=== PATIENT | male | born 1955 | race Caucasian/White ===

== ENCOUNTER 2017-05-15 01:38 | Emergency (ER) | payer OTHER, SELFPAY ==
[2017-05-15 01:39] VITALS: BP 158/83; PULSE 73; RESP 20; TEMP 36.5; BMI 24.5
--- NOTE | 2017-05-15 01:55 | RAD_ITS ---
STUDY: X-RAY - LUMBAR SPINE REASON FOR EXAM: Male, 62 years old. SLIPPED T FELL ON ICE C/O LT SIDED BACK PAIN TECHNIQUE: 3 view(s) of the lumbar spine were obtained. COMPARISON: None FINDINGS: There is straightening of the normal lumbar lordosis. There is a mild dextroscoliosis of the lumbar spine. There is a normal alignment of the vertebrae. There is multilevel endplate spondylosis of the lumbar vertebrae. There is multi-level degenerative disc disease with multi-level disc space narrowing. There is atherosclerotic calcification of the abdominal aorta without a demonstrated aneurysm. RAD/Lumbar Spine 2 or 3 Views IMPRESSION: Degenerative changes of the spine, as detailed above. Electronically Signed: Nadeem Patricia MD at 3:14 EST Tel , Service support ,
--- NOTE | 2017-05-15 01:55 | RAD_ITS ---
STUDY: X-RAY CHEST REASON FOR EXAM: Male, 62 years old. SLIPPED T FELL ON ICE C/O LT SIDED BACK PAIN TECHNIQUE: Single AP portable view of the chest. COMPARISON: None. FINDINGS: The lungs are clear and expanded. There is no demonstrated pleural abnormality. Normal size heart. Normal mediastinum and faheem. Normal visualized pulmonary arteries. Normal visualized aortic arch and descending thoracic aorta. Normal visualized thoracic spine. There is degenerative osteoarthritis of the bilateral shoulders. There is no demonstrated abnormality of the visualized soft tissue structures of the upper abdomen. RAD/Chest PA and Lateral IMPRESSION: Degenerative changes, as described above. No demonstrated acute cardiopulmonary process. Electronically Signed: Nadeem Patricia MD at 2:47 EST Tel , Service support ,
[2017-05-15] MEDS: HYDROCODONE/APAP 7.5-325/15ML 15 ML UDC PO (01:58)
--- NOTE | 2017-05-15 03:25 | ED.DCSUM_ITS ---
- ER Visit Summary Date of Service: 05/15/17 Chief Complaint: Fall History of Present Illness: The patient is a [address] Eugenio Painting. Reports that yesterday he slipped on the ice fell and landed with the left flank on a step. Reports he has pain is 10 out of 10 severity. He denies any blow to the head or loss of consciousness. No neck, shoulder, wrist, or hip pain. He is not on blood thinners. Patient reports she has no radiation of pain to his legs. No numbness, tingling or weakness in his legs. Physical Examination: Vitals: Stable. Afebrile. Neck: No vertebral tenderness. Full ROM without difficulty. Cleared by NEXUS criteria. Back: Moderate tenderness palpation to the right flank. No vertebral point tenderness. General: A&O x 3. NAD. Cardiovascular exam: Regular rate and rhythm, no murmur, rub or gallop. Respiratory exam: Chest nontender. No crepitus. Clear to auscultation bilaterally. No wheezes or stridor. No pain with anterior posterior lateral compression. Abdominal exam: Soft, nontender, nondistended, normal bowel sounds. No pain in RUQ or LUQ specifically. No peritoneal signs. Extremity: Atraumatic. No pain with range of motion. Test Results: Chest x-ray shows no obvious broken ribs. No pneumothorax. The thoracic spine is normal. LS spine x-ray showed no acute disease. Emergency Department Course and Treatment: Patient was treated with Lortab. He was instructed on use of an incentive spirometer. Treatment Plan: He will be discharged with Fedscreek and Colace. Instructed follow- up Dr. Painting in 1 week if not improving. Return to the emergency department for any worsening symptoms. Disposition: To home in improved and stable condition. Impression: 1. Fall. 2. Back pain, acute. This note was generated with [employer] dictation software. It may contain incorrect words, spelling, and punctuation that were not noted in review of the chart prior to signing ED Disposition - Plan for ED Patient: Disposition: Home or Assisted Living Chief Complaint: Fall Instructions: ED Low Back Pain Injury Prescriptions: Hydrocodone Bitart/Apap 5-325 [Fedscreek 5/325] 1 - 2 tablet PO Q4H PRN PRN 5 Days # 20 tablet PRN Reason: Pain Docusate Sodium [Colace] 100 mg PO DAILY #20 capsule Referrals: Eugenio Painting MD [Primary Care Provider] - 1 Week if not improving
[2017-05-15] MEDS: HYDROcodone Bitartrate/Apap 5/325 Tablet PO (03:45)
[2017-05-15 03:46] VITALS: BP 124/82; PULSE 59; RESP 20; O2SAT 94
== END 2017-05-15 03:47 | disposition home or self-care (01) ==
PROVIDERS: Emergency Provider Emergency Medicine; Family Provider Family Medicine; PCP Family Medicine
DX: M54.5 Low back pain (principal); M54.6 Pain in thoracic spine; G47.33 Obstructive sleep apnea (adult) (pediatric); Z86.711 Personal history of pulmonary embolism; Z87.891 Personal history of nicotine dependence; Z79.82 Long term (current) use of aspirin; W00.0XXA Fall on same level due to ice and snow, initial encounter; Y93.89 Activity, other specified; Y92.89 Other specified places as the place of occurrence of the external cause; Y99.8 Other external cause status
CPT/HCPCS: 71046; 72100; 99283

== ENCOUNTER 2017-05-29 09:08 | Day surgery (SDC) | payer OTHER, MEDICAID, SELFPAY ==
[2017-05-29 09:32] VITALS: BP 139/83; PULSE 52; RESP 16; TEMP 36.6; O2SAT 100; BMI 24.7
--- NOTE | 2017-05-29 10:29 | PCM.HP.STD ---
Problem List (1) Colon cancer screening Status: Acute History of Present Illness Date of Admission: 05/29/17 The patient is a 62 year old M who presents for screening colonoscopy. Past Medical History Allergies acetaminophen [From Percocet] Allergy (Verified 05/26/17 13:19) Itching oxycodone [From Percocet] Allergy (Verified 05/26/17 13:19) Itching Home Medications: Ambulatory Orders Medication Instructions Recorded Aspirin E.C. [Ecotrin] 1 tab PO DAILY 05/15/17 Smoking Status: Former smoker - *Family History Maternal History Items: No pertinent history VTE Information - Inpt Only VTE Present on Admission: No VTE Mechan Device Prophylaxis: None VTE Pharm Prophylaxis ordered?: No Reason prophylaxis not ordered:: Treatment Not Indicated Patient Problems: Active and Suspected Problems Colon cancer screening (Acute) - Physical Exam Neck: Supple, No JVD Lungs: Clear to auscultation Cardiovascular: Regular rate, Regular Rhythm, No murmurs Abdomen: Bowel Sounds Present, Soft, Non Tender, Non-Distended Vital Signs Temp Pulse Resp BP Pulse Ox 97.9 F 52 L 16 139/83 H 100 05/29/17 09:32 05/29/17 09:32 05/29/17 09:32 05/29/17 09:32 05/29/17 09:32 Oxygen Delivery Method Room Air Weight: 158 lb 4.67 oz Body Mass Index (BMI) 24.7 Assessment/Plan Active and Suspected Problems Colon cancer screening (Acute) I plan is to perform a colonoscopy
--- NOTE | 2017-05-29 10:31 | PCM.OPRPT ---
Problem List (1) Colon cancer screening Status: Acute Report of Operation Date of Procedure: 05/29/17 Pre-Operative Diagnosis: Z12.11 screening colonoscopy Post-Operative Diagnosis: Same Surgery/Procedure Performed:: [id number] colonoscopy Type of Anesthesia:: MAC Anesthesiologist: Elian Oneill Description of Procedure: Patient was brought into the endoscopy suite and placed in the left lateral decubitus position. Patient was given graded anesthesia. Scope was inserted into the rectum. The scope was directed through the sigmoid colon, descending colon, transverse colon, ascending colon, to the cecum. Operative findings: 1. Cecum: Normal appearance no mass lesions normal ileocecal valve. 2. Ascending colon: Normal appearance no mass lesions. 3. Transverse colon: Normal appearance no mass lesions. 4. descending colon: Normal appearance no mass lesions. 5. Sigmoid colon: Normal appearance no mass lesions. 6. Rectum: Normal appearance no mass lesions retroflexion did show some internal hemorrhoids no masses are identified. Digital rectal exam was performed showing a smooth prostate with no masses within the anus. Patient will need to have another colonoscopy in 10 years. - Admit VTE Documentation VTE Present on Admission: No VTE Mechan Device Prophylaxis: None VTE Pharm Prophylaxis ordered?: No Reason prophylaxis not ordered:: Treatment Not Indicated
[2017-05-29 10:32] VITALS: BP 122/95; BP 139/83; PULSE 63; RESP 18; TEMP 36.1; O2SAT 93
[2017-05-29 10:35] VITALS: BP 100/62; BP 139/83; PULSE 59; RESP 18; O2SAT 96
[2017-05-29 10:40] VITALS: BP 104/56; BP 139/83; PULSE 57; RESP 18; O2SAT 97
[2017-05-29 10:43] VITALS: BP 139/81; BP 139/83; PULSE 55; RESP 18; TEMP 36.4; O2SAT 98
[2017-05-29 11:03] VITALS: BP 139/83
== END 2017-05-29 11:04 | disposition home or self-care (01) ==
LOC: EN 09:11 → ACINP 09:15 → AC 09:18
PROVIDERS: Family Provider Family Medicine; PCP Family Medicine; Visit Provider Surgery
PROC: 0DJD8ZZ Inspection of Lower Intestinal Tract, Via Natural or Artificial Opening Endoscopic (ICD-10-PCS; CPT 45378; principal; 2017-05-29 10:55)
DX: Z12.11 Encounter for screening for malignant neoplasm of colon (principal); K64.8 Other hemorrhoids; Z86.711 Personal history of pulmonary embolism; Z87.891 Personal history of nicotine dependence; Z79.82 Long term (current) use of aspirin
CPT/HCPCS: 45378; J7120

== ENCOUNTER → 2019-01-10 | Outpatient (CLI) | payer OTHER, SELFPAY ==
--- NOTE | 2019-01-10 13:27 | RAD_ITS ---
HISTORY: chest tightness x 3 days EXAM: XR Chest 2 Views: COMPARISON: May 15, 2017 FINDINGS: # of images incl. paperwork: 2 Lungs are clear. Heart is not enlarged. Bones are normal. Pulmonary vascularity is distinct. No effusions. RAD/Chest PA and Lateral IMPRESSION: Normal. at 0602 Reported and signed by: Bill Vera MD Electronically Signed: Bill Vera MD at 6:01 EDT Tel , Service support ,
[2019-01-10 16:08] LABS: Hematocrit 43.9 % (40-54); Mean Corp Hgb Conc 34.2 g/dL (32-36); Mean Corpuscular Hgb 32.1 pg (27.0-32.0); Platelet Count 285 K/mm3 (150-450); RBC Distribution Width CV 13.7 % (11.6-14.6); RBC Distribution Width SD 47.8 fl (35.1-43.9); Red Blood Count 4.67 M/mm3 (4.6-6.2); White Blood Count 5.5 K/mm3 (4.4-11.0)
[2019-01-10 16:37] LABS: Erythrocyte Sedimentation Rate 8 mm/hr (0-20)
[2019-01-10 17:04] LABS: AST(SGOT) 24 U/L (15-37); Alanine Aminotransfer ALT/SGPT 29 U/L (16-61); Albumin, Serum 3.5 g/dL (3.2-5.0); Alkaline Phosphatase 61 U/L (45-117); Anion Gap 7 (5-15); BUN 19 mg/dL (7-18); BUN/Creat Ratio 20.3 RATIO (10-20); CPK Total, Creatine Kinase 225 U/L (39-308); CRP < 2.90 mg/L (0.0-3.0); Calcium,Total 8.8 mg/dL (8.5-10.1); Chloride 107 mmol/L (98-107); Creatinine, Serum 0.93 mg/dL (0.70-1.30); EST Glomerular Filtration Rate 87 mL/min (>60); Est Glom Filt Rate - Afr Amer 105 mL/min (>60); Globulin 3.5 g/dL (2.2-4.2); Glucose 83 mg/dL (74-106); Potassium 3.6 mmol/L (3.5-5.1); Sodium Level 142 mmol/L (136-145); Thyroid Stim Hormone (TSH) 0.48 uIU/mL (0.358-3.74)
[2019-01-14 20:53] LABS: Myoglobin, Urine < 2 ng/mL (0-13)
== END | disposition home or self-care (01) ==
PROVIDERS: Family Provider Family Medicine; PCP Family Medicine; Referring Provider Family Medicine; Visit Provider Family Medicine
DX: R07.89 Other chest pain (principal)
CPT/HCPCS: 36415; 71046; 80053; 82550; 83874; 84443; 85027; 85652; 86140

== ENCOUNTER → 2019-02-08 | Outpatient (CLI) | payer OTHER, SELFPAY ==
--- NOTE | 2019-02-08 13:39 | PFT ---
INTRODUCTION: The patient is a 63-year-old male that presents for pulmonary function studies secondary to a diagnosis of asthma. Respiratory therapy reports good patient effort. Bronchodilators were used during testing. INTERPRETATION: Forced expiration spirometry demonstrates the presence of a mild large airways obstructive ventilatory defect. There was no significant response to aerosolized bronchodilators. Spirograms are of good quality and do not plateau indicating slow emptying of the lungs. Body plethysmography was performed and reveals lung volumes to be within normal limits. Diffusing capacity by single breath CO is also within normal limits. IMPRESSION: Irreversible mild large airways obstructive ventilatory defect with preserved lung volumes and diffusing capacity.
== END | disposition home or self-care (01) ==
PROVIDERS: Family Provider Family Medicine; PCP Family Medicine; Referring Provider Family Medicine; Visit Provider Family Medicine
DX: J45.909 Unspecified asthma, uncomplicated (principal)
CPT/HCPCS: 94060; 94726; 94729

== ENCOUNTER → 2020-02-03 08:42 | Outpatient (CLI) | payer OTHER, SELFPAY ==
--- NOTE | 2020-02-03 08:46 | CDU_ITS ---
Reason For Study: Stenosis Rt. Velocities/BP Lt. Velocities/BP Prox CCA 73.4/20 cm/sec. Prox CCA 106/24.9 cm/sec. Mid CCA 50.9/16.8 cm/sec. Mid CCA 97.4/26.2 cm/sec. Dist CCA 52.2/19.2 cm/sec. Dist CCA 102.3/32.3 cm/sec. Prox ICA 26.4/9 cm/sec. Prox ICA 43/11.6 cm/sec. Mid ICA 55.2/10.3 cm/sec. Mid ICA 56.1/23.8 cm/sec. Dist ICA 57.8/22.9 cm/sec. Dist ICA 62.2/22.9 cm/sec. Rt. ICA/CCA = 1.1. Lt. ICA/CCA = 0.6. Prox ECA 482.3/115.2 cm/sec. Prox ECA 91.3/18.8 cm/sec. Rt. Vert. 36/12.5 cm/sec. Lt. Vert. 36.5/13 cm/sec. Right Extracranial There is homogeneous, smooth atherosclerotic plaque noted in the right common carotid artery. There is homogeneous, smooth atherosclerotic plaque noted in the right internal carotid artery. There is heterogeneous, irregular atherosclerotic plaque noted in the right external carotid artery. Antegrade flow is noted in the right vertebral artery. Left Extracranial There is homogeneous, smooth atherosclerotic plaque noted in the left common carotid artery. There is heterogeneous, irregular atherosclerotic plaque noted in the left internal carotid artery. There is intimal thickening but no significant atherosclerotic plaque noted in the left external carotid artery. Antegrade flow is noted in the left vertebral artery. Procedure Carotid Duplex 03604. This is a Carotid Duplex examination using B-mode, color flow and specral Doppler. Exam performed in department. Interpretation Summary Smooth plaque noted at the proximal right internal carotid artery with less than 50% stenosis. Irregular calcific plaque with shadowing proximal right external carotid artery with greater than 50% stenosis Minimal irregular plaque at the proximal left internal carotid artery with less than 50% stenosis Less than 50% stenosis left external carotid Patent antegrade vertebrals bilaterally Ordering Physician: PAULA MCMILLAN Referring Physician: Eugenio Painting MD Performed By: Helen Ocampo RVT
== END ==
PROVIDERS: PCP Family Medicine
DX: I65.22 Occlusion and stenosis of left carotid artery (principal)
CPT/HCPCS: 93880

== ENCOUNTER → 2021-11-08 | Outpatient (CLI) | payer OTHER, SELFPAY ==
[2021-11-08 15:33] LABS: Absolute Lymphocyte Count 0.66 X10^3/uL (0.83-4.51); Absolute Neutrophil Count 2.9 X10^3/uL (2.0-7.7); Basophil# 0.02 X10^3/uL; Basophil% 0.5 % (0-1); Eosinophil# 0.05 X10^3/uL; Eosinophils% 1.2 % (0-5); Hematocrit 48.1 % (40-54); Hemoglobin 16.1 g/dL (13.0-16.5); Lymphocyte # 0.66 X10^3/ul (0.83-4.51); Lymphocyte % 16.3 % (19-41); Mean Corp Hgb Conc 33.5 g/dL (32-36); Mean Corpuscular Hgb 32.4 pg (27.0-32.0); Mean Corpuscular Volume 96.8 fL (80-94); Mean Platelet Vol. 9.3 fl (6.2-12.0); Monocyte# 0.41 X10^3/uL; Monocyte% 10.1 % (0-10); NRBC Flagged by Analyzer 0 % (0-5); Neutrophil # 2.89 X10^3/uL (2.7-7.7); Neutrophil % 71.4 % (47-70); Platelet Count 315 K/mm3 (150-450); RBC Distribution Width CV 13.9 % (11.6-14.6); Red Blood Count 4.97 M/mm3 (4.6-6.2); White Blood Count 4.1 K/mm3 (4.4-11.0)
[2021-11-08 15:59] LABS: ALB/GLOB Ratio 0.8 RATIO (0.9-2.4); AST(SGOT) 67 U/L (15-37); Alanine Aminotransfer ALT/SGPT 68 U/L (16-61); Albumin, Serum 3.4 g/dL (3.2-5.0); Alkaline Phosphatase 93 U/L (45-117); Anion Gap 6 (5-15); BUN 12 mg/dL (7-18); BUN/Creat Ratio 10.7 RATIO (10-20); Calcium,Total 9.2 mg/dL (8.5-10.1); Chloride 104 mmol/L (98-107); Creatinine, Serum 1.12 mg/dL (0.70-1.30); EST Glomerular Filtration Rate 70 mL/min (>60); Est Glom Filt Rate - Afr Amer 85 mL/min (>60); Globulin 4.2 g/dL (2.2-4.2); Glucose 116 mg/dL (74-106); Potassium 4.6 mmol/L (3.5-5.1); Protein, Total 7.6 g/dL (6.4-8.2); Sodium Level 136 mmol/L (136-145); Thyroid Stim Hormone (TSH) 0.95 uIU/mL (0.358-3.74)
[2021-11-08 16:27] LABS: Erythrocyte Sedimentation Rate 17 mm/hr (0-20)
== END | disposition home or self-care (01) ==
LOC: MFPLAB 12:25
PROVIDERS: PCP Family Medicine; Visit Provider Family Medicine
DX: R53.81 Other malaise (principal); R53.83 Other fatigue; Z20.822 Contact with and (suspected) exposure to COVID-19
CPT/HCPCS: 36415; 80053; 84443; 85025; 85652; 87635; U0003; U0005

== ENCOUNTER → 2021-11-26 | Outpatient (CLI) | payer OTHER, SELFPAY ==
--- NOTE | 2021-11-26 07:13 | CT_ITS ---
STUDY: LOW DOSE CT LUNG CANCER SCREENING REASON FOR EXAM: Male, 66 years old. Screening for lung ca. The patient smoked 2 packs per day for 30 years. RADIATION DOSAGE (If Supplied By Facility): CTDIvol = ( 2.01 ) mGy, DLP = ( 75.25 ) mGycm TECHNIQUE: No contrast was administered. Low dose technique was utilized (average mAS-38 and kVp 120). 1.25 mm axial source images with a slice interval of 1.25-mm were reconstructed in lung windows. 2.5 mm axial source images with a slice interval of 2.5-mm were reconstructed in lung windows. 5.0 mm axial source images with a slice interval of 5.0-mm were reconstructed in soft tissue windows. COMPARISON: None. NODULES: There is a 2.5 mm noncalcified nodule in the posterior aspect of the left upper lobe abutting the pleural surface. This is seen on axial image #48. A similar appearing nodule measuring 2 mm is seen along the posterior medial aspect of the left upper lobe as seen on axial image #51. Emphysema: Mild degree of emphysema. Linear scar in the left lower lobe and medial aspect of the right middle lobe. Endobronchial lesion: None Aorta: Atherosclerotic plaque formation of the aortic arch. CORONARY ARTERIES: Coronary artery calcification is seen. Heart: Unremarkable Pulmonary artery: Unremarkable Mediastinal nodes: Small mediastinal lymph nodes. Other chest and abdominal findings: CT/Low Dose CT Lung Screening IMPRESSION: Lung-RADS category 2 - Continue annual screening with LDCT in 12 months. IMPORTANT NOTES FOR USE: ACR Lung-RADS Version 1.1 Assessment Categories Release Date: 2018 Category: Coded 0-4 bases on nodule(s) with highest degree of suspicion. Negative screen is defined as categories 1 and 2; a positive screen is defined as categories 3 and 4. Category 3 and 4A nodules that are unchanged on interval CT should be coded as category 2, and individuals returned to screening in 12 months. Category 4X: Category 3 or 4 nodules with additional imaging findings that increase the suspicion of lung cancer, such as spiculation, GGN that doubles in size in 1 year, enlarged lymph notes, etc. Category Modifiers: S (significant finding unrelated to lung cancer) Electronically Signed: Pablo Pitt MD at 13:29 EDT ,
--- NOTE | 2021-11-26 11:06 | RAD_ITS ---
STUDY: X-RAY - RIGHT KNEE REASON FOR EXAM: Male, 66 years old. PAIN TECHNIQUE: 4 view(s) of the knee. COMPARISON: None. FINDINGS: Normal visualized distal femur. Normal visualized proximal tibia and fibula. Normal proximal tibiofibular articulation. There is moderate degenerative arthrosis of the medial femorotibial compartment with moderate joint space narrowing. Normal lateral femorotibial compartment. Normal patellofemoral articulation. There are atherosclerotic calcifications. RAD/Knee 4 or More Views IMPRESSION: Moderate medial compartment arthrosis with degenerative spurs in the proximal tibia. No demonstrated fracture or suspicious osseous lesion Electronically Signed: Maxime Reilly MD at 12:59 EDT ,
== END | disposition home or self-care (01) ==
PROVIDERS: PCP Family Medicine; Referring Provider Family Medicine; Visit Provider Family Medicine
DX: M25.561 Pain in right knee (principal); Z87.891 Personal history of nicotine dependence
CPT/HCPCS: 71271; 73564

== ENCOUNTER → 2021-12-24 | Outpatient (CLI) | payer OTHER, SELFPAY ==
[2021-12-24 15:17] LABS: ALB/GLOB Ratio 0.8 RATIO (0.9-2.4); AST(SGOT) 57 U/L (15-37); Alanine Aminotransfer ALT/SGPT 66 U/L (16-61); Albumin, Serum 3.5 g/dL (3.2-5.0); Alkaline Phosphatase 91 U/L (45-117); Anion Gap 8 (5-15); BUN 13 mg/dL (7-18); BUN/Creat Ratio 12.7 RATIO (10-20); Calcium,Total 9.1 mg/dL (8.5-10.1); Chloride 104 mmol/L (98-107); Creatinine, Serum 1.02 mg/dL (0.70-1.30); EST Glomerular Filtration Rate 78 mL/min (>60); Est Glom Filt Rate - Afr Amer 94 mL/min (>60); Globulin 4.2 g/dL (2.2-4.2); Glucose 99 mg/dL (74-106); Potassium 3.7 mmol/L (3.5-5.1); Protein, Total 7.7 g/dL (6.4-8.2); Sodium Level 139 mmol/L (136-145)
[2022-01-05 00:07] LABS: Testosterone, Free 7.95 ng/dL (5.00-21.00)
[2022-01-05 16:39] LABS: Testosterone, % Free 2.82 % (1.50-4.20); Testosterone, Total 282 ng/dL (264-916)
== END | disposition home or self-care (01) ==
LOC: MTLAB 12:47
PROVIDERS: PCP Family Medicine; Referring Provider Family Medicine; Visit Provider Family Medicine
DX: N52.9 Male erectile dysfunction, unspecified (principal)
CPT/HCPCS: 36415; 80053; 84153; 84402; 84403

== ENCOUNTER 2022-01-07 07:30 | Outpatient (RCR) | payer OTHER, SELFPAY ==
--- NOTE | 2021-12-17 09:14 | HP.PTEVAL ---
Patient's Visit Information LORENA MEDEIROS is a 66 year old M referred to Physical Therapy by Dr. Amanda Culp MD with a diagnosis of Right Knee Pain. Date of Evaluation: 12/17/21 Physical Therapist: Olesya Palma DPT - Visit Plan Frequency: 2x /Week Duration: 3 Weeks Plan: Focus on LE and core strength/stabilization. HEP Given IE: quad set, SLR, bridge, HS Stretching - Subjective Right knee pain that started months ago-insidious onset. Years ago he hyper extended it- but never really bothered him since the last 8-10 months. Pain is located right on the joint line both medial and lateral- medial is worse. No radiating pain. Describes the pain as sharp/shooting and dull and achy- Worst: 8/10 Agg: using a ladder going up, getting up off the floor. Normally the pain grabs then gets better. Eases: laying down Best: 0/10 Sleep: seldom disturbed. 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 Feels that the knee has gotten worse over the last month and a half. Job duties- have changed a little bit and have put more stress on the knee. Not as active when he gets home anymore due to the pain. Has had x-rays- showed moderate OA. Knee brace and wears it all the time. PMHx: none Meds: none - Objective Posture: fair throughout. Stairs: asc/desc 8 recip with poor control with descent and significant UE A from bilateral rails. Gait: antalgic- decrease stance on right LE with poor heel/toe pattern. SLS: 15 sec with reports of pain. Palpation: tender along medial joint line. ROM: 0-130 degrees. Strength: Core: fair, Hip: 4+/5, Knee: 5/5, Ankle: 5/5. Flex: HS: moderate, Gastroc: moderate - Balance/Special Test Scores Lower Extremity Functional Score: 37 - Goals Goal 1:: Patient will be I with HEP and progression Goal Time Frame: 4-6 Weeks Goal 2:: Patient will report 80% improvement Goal Time Frame: 4-6 Weeks Goal 3:: Patient will ambulate >300 feet with a normalized gait pattern Goal Time Frame: 4-6 Weeks Goal 4:: Patient will asc/desc 8' stairs recip with 1 HR and normal pattern - Rehabilitation Potential Physical Therapy Diagnosis: Patient presents with hypomobility- he has decreased LE and core s/s, flex and muscular endurance leading to abnormal gait and increased pain with ADL's Rehabilitation Potential: Good - Anticipated Interventions Patient/Client Instruction: Educate patient on: Benefits of Fitness Program Therapeutic Exercise to Include: Strength training, Endurance training, Agility training, Body mechanics, Postural training, Flexibilty training, Gait and locomotor training, Neuromotor development, Dynamic Lumbar Stabilization, Scapular Strength/Stabilization TENS: Yes Cryotherapy (ice pack, ice massage): Yes Thermo therapy (hot pack): Yes Ultrasound (thermal/non thermal): Yes Thank you for the opportunity to evaluate your patient. For Medicare and Medicare HMO plans, please review the plan of care and approve it. It will need to be FAXED BACK to us at [phone] for Medicare purposes. For Medicare only, by signing this I certify the plan of care. Please let me know if there are questions or concerns regarding this plan of care. Physician Signature: Date:
--- NOTE | 2022-01-07 08:11 | HP.PTDCSUM ---
It has been my pleasure to treat LORENA MEDEIROS referred by Dr. Amanda Culp MD, with the diagnosis of Right Knee Pain for a total of 6 visit(s). Discharge Date: Please see the following information for a summary of their discharge status. Subjective: Patient reports that he feels that PT has really helped. He thinks that he will continue his exercises R knee Pain Intensity (Out of 10): 0 % Improvement: 80 Objective/Function: Posture: fair throughout. Stairs: asc/desc 8 recip with single hand rail. Gait: antalgic- due to dropping a weight on his foot SLS: 30 sec with reports of pain. Palpation: not tender to touch. ROM: 0-130 degrees. Strength: Core: fair, Hip: 4+/5, Knee: 5/5, Ankle: 5/5. Flex: HS: moderate, Gastroc: moderate Goal 1:: Patient will be I with [facility] and progression Goal Progress: Goal Met Goal 2:: Patient will report 80% improvement Goal Progress: Goal Met Goal 3:: Patient will ambulate >300 feet with a normalized gait pattern Goal Progress: Goal Met Goal 4:: Patient will asc/desc 8' stairs recip with 1 HR and normal pattern Goal Progress: Progressing Plan: 01/07/22: Discharge to [facility] If there are questions or concerns regarding this patient's physical therapy, please feel free to call me at [phone]. Thank you for the referral of this patient. Sincerely, Olesya Palma, DPT Balance/Gait/Functional tests - Balance/Special Test Scores Lower Extremity Functional Score: 51
== END 2022-01-07 09:09 | disposition home or self-care (01) ==
LOC: PT 07:30
PROVIDERS: PCP Family Medicine; Referring Provider Family Medicine; Visit Provider Family Medicine
DX: M25.561 Pain in right knee (principal)
CPT/HCPCS: 97035; 97110; 97161; 97164

== ENCOUNTER → 2022-04-21 | Outpatient (CLI) | payer BC, SELFPAY ==
--- NOTE | 2022-09-06 17:09 | PFTCOMP ---
Complete pulmonary function testing report Date: 04/21/2022 Referring physician: Dr. Norris Harris indication: Dyspnea Smoking history: Former [id number] smoker, quit 6 years ago Pre and postbronchodilator show: 1. Mild airway obstruction, possibly consistent with Gold stage I COPD. 2. No significant response to bronchodilator 3. Review of the flow volume loop corroborates the mild airway obstruction The patient met technical standards of acceptability and reproducibility. Queen Producer comments indicated good patient effort. Lung volume studies by plethysmography were normal. 1. No evidence of restriction or hyperinflation. Diffusing capacity by single breath carbon monoxide technique was greater than normal, likely a physiologic variant. DLCO was 117% predicted, DL/VA was 124% addicted. No prior study was available for comparison.
== END | disposition home or self-care (01) ==
PROVIDERS: PCP Family Medicine; Visit Provider Internal Medicine Pulmonary Disease
DX: R06.00 Dyspnea, unspecified (principal)
CPT/HCPCS: 94060; 94726; 94729

== ENCOUNTER → 2022-07-08 | Outpatient (CLI) | payer BC, SELFPAY ==
--- NOTE | 2022-07-08 10:15 | RAD_ITS ---
INDICATION: HIP PAIN L GERALD. EXAMINATION/TECHNIQUE: X-RAY - XR Hips Bilateral with Pelvis when performed; 2 Views COMPARISON: None. FINDINGS: PELVIC BONES: No displaced fracture, destructive or sclerotic lesions. Note that overlapping bowel shadows may however obscure fine detail. Sacroiliac joints are unremarkable. No widening of the pubic symphysis. HIPS: There are degenerative changes of the hips characterized by joint space narrowing and subchondral sclerosis. SOFT TISSUES: No soft tissue swelling or gas. RAD/Hips B/L min 2 views w/ Pelvis IMPRESSION: Bilateral degenerative changes of the hips. No acute osseous injury. Electronically Signed: Renetta Murphy MD at 11:45 EDT ,
--- NOTE | 2022-07-08 10:15 | RAD_ITS ---
INDICATION: LOW BACK PAIN EXAMINATION/TECHNIQUE: X-RAY - XR Spine Lumbar Min 4 Views COMPARISON: May 15, 2017. FINDINGS: VERTEBRAE: Preserved vertebral body height. No fracture. There is multilevel endplate spondylosis. No spondylolisthesis. Preservation of the normal lumbar lordosis. No significant facet arthropathy. DISCS: There is multilevel degenerative disc disease. INCLUDED ABDOMEN: Included bowel gas pattern is non-obstructive. There are vascular calcifications. RAD/L/S Spine Min 4 Views IMPRESSION: Multilevel degenerative disc disease. Atherosclerosis. Electronically Signed: Renetta Murphy MD at 11:36 EDT ,
--- NOTE | 2022-07-08 10:20 | RAD_ITS ---
INDICATION: TAILBONE INJURY EXAMINATION/TECHNIQUE: X-RAY - XR Sacrum/Coccyx Min 2 Views COMPARISON: None. FINDINGS: SACRUM/COCCYX: No displaced fracture, destructive or sclerotic lesions. Note that overlapping bowel shadows may however obscure fine detail in the frontal view. SACRO-ILIAC JOINTS: The articular structures are unremarkable. SOFT TISSUES: No soft tissue swelling or gas. RAD/Sacrum-Coccyx min 2 Views IMPRESSION: Unremarkable sacro-coccygeal spine. Electronically Signed: Renetta Murphy MD at 11:46 EDT ,
== END | disposition home or self-care (01) ==
LOC: MTRAD 10:14
PROVIDERS: PCP Family Medicine; Referring Provider Family Medicine; Visit Provider Family Medicine
DX: S39.92XA Unspecified injury of lower back, initial encounter (principal); M54.50 Low back pain, unspecified; M25.552 Pain in left hip; X58.XXXA Exposure to other specified factors, initial encounter
CPT/HCPCS: 72110; 72220; 73521

== ENCOUNTER → 2023-02-10 | Outpatient (CLI) | payer MEDICARE, SELFPAY ==
--- NOTE | 2023-02-10 06:43 | CT_ITS ---
HISTORY: TOBACCO USE. Former smoker quit 8 years ago, smoked 2 packs per day x 42 years. TECHNIQUE: Helically acquired images were obtained of the chest without contrast. A radiation dose optimization technique was used for this scan. 882 images. COMPARISON: 11/26/2021. FINDINGS: LARGE AIRWAYS: Patent. LUNGS: Mild emphysema with hyperinflation. Stable 2 to 3 mm pleural-based left upper lobe nodules on image 57/270. Chronic mild right middle lobe and left lower lobe linear scarring. No new suspicious nodule or acute alveolar consolidation. PLEURA: No pneumothorax or significant pleural effusion. HEART/PERICARDIUM: Heart within normal limits in size with coronary artery calcification. No pericardial effusion. VESSELS: Thoracic aorta nondilated. Mild atherosclerosis. MEDIASTINUM/DEVIN: No pathologically enlarged adenopathy. UPPER ABDOMEN: Unremarkable. BONES: Degenerative change. CT/Low Dose CT Lung Screening IMPRESSION: No significant interval change in size of small left upper lobe pulmonary nodules. Lung-RADS category 2: Continue annual screening with low dose CT. Electronically Signed: Raegan Metzger MD at 14:25 EST ,
== END | disposition home or self-care (01) ==
PROVIDERS: PCP Family Medicine; Referring Provider Internal Medicine Pulmonary Disease; Visit Provider Internal Medicine Pulmonary Disease
DX: Z12.2 Encounter for screening for malignant neoplasm of respiratory organs (principal); Z87.891 Personal history of nicotine dependence
CPT/HCPCS: 71271

== ENCOUNTER → 2023-04-21 | Outpatient (CLI) | payer MEDICARE, SELFPAY ==
--- OUTSIDE RECORDS SUMMARY | 2023-04-21 10:03 | XMS RPT_ITS | CCD ---
Author Name Unknown Address [address] [place] [address] Organization [facility] Care Team Providers Care Crochet Beader Name Role Phone Renetta Painting Unavailable Piotr Forte Unavailable Renetta Painting MD Primary Care Provider Renetta Painting MD Primary Care Provider RENETTA PAINTING Primary Care Unavailable JENNIFER SAMS Referring Unavailable Renetta Painting MD Primary Care Provider Allergies Allergy Classification Reported Allergen(s) Allergy Type Date of Onset Reaction(s) Facility (5 sources) Acetaminophen / oxyCODONE; Translations: [OXYCODONE-ACETAMI NOPHEN] Drug Allergy 10-09-2014 Itching [facility] Medications Current Medications Medication Drug Class(es) Dates Sig (Normalized) Sig (Original) LORazepam 1 mg oral tablet (1 source) Benzodiazepine Start: 09-12-2021 End: 09-14-2021 take 1 tablet by mouth twice daily for dizziness Ativan 1 mg oral tablet ; 1 tab(s) orally 2 times a day Quantity: 6 Refills: 0 Ordered: 12-Sep-2021 Piotr Forte Start: 12-Sep-2021 End: 14-Sep-2021 Generic Substitution Allowed Comments: Caution federal law prohibits the transfer of this drug to any person other than the person for whom it was prescribed.Do not take this drug if you are .May cause drowsiness or dizziness. Completed/Discontinued Medications Medication Drug Class(es) Dates Sig (Normalized) Sig (Original) acetaminophen 325 mg oral tablet (4 sources) Start: 01-10-2017 take 2 tablets by mouth every six hours as needed acetaminophen (TYLENOL) 325 mg tablet Take 2 tablets by mouth every 6 hours as needed for Pain. 0 01/10/2017 Active Problems Active Problems Problem Classification Problem Date Documented Da te Episodic/Chronic Anxiety disorders (4 sources) Anxiety; Translations: [Anxiety state, unspecified] 09-12-2021 Chronic Past or Other Problems Problem Classification Problem Date Documented Da te Episodic/Chronic Headache; including migraine (4 sources) Headache; Translations: [Headache] Onset: 01-08-2017 01-10-2017 Episodic Pulmonary heart disease (4 sources) Pulmonary embolism; Translations: [Other pulmonary embolism without acute cor pulmonale] Onset: 01-05-2017 01-05-2017 Episodic Results Test Name Value Interpretation Reference Range Facil ity Vital Signs Date Time Vital Sign Value Performing Clinician Facility 09-12-2021 07:25-0400 FiO2 21 1 Renetta Painting Other Phone: [facility] 09-12-2021 07:25-0400 Heart rate 77 /min Renetta Painting Other Phone: [facility] 09-12-2021 07:25-0400 Respiratory rate 16 /min Renetta Painting Other Phone: [facility] 09-12-2021 07:11-0400 Diastolic blood pressure 96 mm[Hg] Renetta Painting Other Phone: [facility] 09-12-2021 07:11-0400 SaO2% (BldA) [Mass fraction] 93 % Renetta Painting Other Phone: [facility] 09-12-2021 07:11-0400 Systolic blood pressure 157 mm[Hg] Renetta Painting Other Phone: [facility] 09-12-2021 06:20-0400 Body height 172.7 cm Renetta Painting Other Phone: [facility] 09-12-2021 06:20-0400 Body temperature 98.06 [degF] Renetta Painting Other Phone: [facility] 09-12-2021 06:20-0400 Body weight 75.5 kg Renetta Painting Other Phone: [facility] Encounters Encounter Date Encounter Type Care Provider Facility Start: 02-13-2023 Telephone encounter Jennifer [facility]ari MD [facility] Start: 12-24-2021 End: 12-24-2021 ambulatory RENETTA PAINTING Facility:[facility] Start: 12-23-2021 Orders Only Jennifer Kohli Work Phone: [facility] Procedures Date Procedure Procedure Detail Performing Clinician Start: 09-12-2021 End: 09-12-2021 EKG impression Piotr Forte Start: 01-04-2017 Lipid 1996 panel - S carlo or Plasma Jennifer Sams MD Work Phone: Plan of Treatment Date Care Activity Detail Author Start: 12-02-2022 Influenza vaccination Influenza Vaccine (#1) [facility] Start: 04-03-2022 Advance Directive Discussion Advance Directive Discussion [facility] Start: 04-03-2022 Depression Assessment Depression Assessment [facility] Start: 02-27-2022 DIABETES SCREEN DIABETES SCREEN [facility] Start: 02-27-2022 Diabetes Screening Diabetes Screening [facility] Start: 01-04-2022 Lipid 1996 panel - Serum or Plasma Lipid Screening [facility] Start: 01-04-2022 LIPID SCREEN LIPID SCREEN [facility] Start: 12-02-2021 Influenza vaccination INFLUENZA (#1) [facility] Start: 2021 ADVANCE DIRECTIVE DISCUSSION ADVANCE DIRECTIVE DISCUSSION [facility] Start: 2021 Pneumococcal Vaccine: 65+ (1 - PCV) Pneumococcal Vaccine: 65+ (1 - PCV) [facility] Start: 2021 PNEUMOCOCCAL: 65+ (1 - PCV) PNEUMOCOCCAL: 65+ (1 - PCV) [facility] Start: 04-03-2021 DEPRESSION ASSESSMENT DEPRESSION ASSESSMENT [facility] Start: 2016 RSV Vaccine (1 - 1-dose 60+ series) RSV Vaccine (1 - 1-dose 60+ series) [facility] Start: 2011 PROSTATE CANCER SCREENING DISCUSSION PROSTATE CANCER SCREENING DISCUSSION [facility] Start: 2006 SHINGRIX VACCINE (1 of 2) SHINGRIX VACCINE (1 of 2) [facility] Start: 2001 COLOGUARD (FIT-DNA) COLOGUARD (FIT-DNA) [facility] Start: 2001 Colonoscopy COLONOSCOPY [facility] Start: 2001 COLORECTAL CANCER SCREENING COLORECTAL CANCER SCREENING [facility] Start: [address] COLONOGRAPHY [facility] Start: 2001 FECAL OCCULT BLOOD FECAL OCCULT BLOOD [facility] Start: 2001 SIGMOIDOSCOPY SIGMOIDOSCOPY [facility] Start: 07-02-1996 Urine microalbumin profile DTaP,Tdap,Td Vaccine (1 - Tdap) [facility] Start: 1975 Urine microalbumin profile DTAP,TDAP,TD (1 - Tdap) [facility] Start: 1974 HEPATITIS C SCREENING HEPATITIS C SCREENING [facility] Start: 1974 HIV SCREENING HIV SCREENING [facility] Start: 1968 Adult depression screening assessment DEPRESSION SCREENING [facility] Start: 1956 COVID-19 VACCINE (#1) COVID-19 VACCINE (#1) [facility] Start: 1955 ABDOMINAL AORTIC ANEURYSM SCREENING ABDOMINAL AORTIC ANEURYSM SCREENING [facility] End: 01-01-2023 Duplex scan extracranial art compl bi study US CAROTID BILAT Radiology Routine Occlusion and stenosis of left carotid artery 1 Occurrences starting 12/02/2021 until 01/01/2023 [facility] Work Phone: Immunizations Immunization Date Immunization Notes Care Provider Fa bebeto NEGATED: Highlighted row has not occurred!01-10-2017 pneumococcal conjugate vaccine, 13 valent Jennifer Sams MD Work Phone: [facility] NEGATED: Highlighted row has not occurred!01-10-2017 Seasonal, trivalent, recombinant, injectable influenza vaccine, preservative free Jennifer Sams MD Work Phone: [facility] Payers Date Payer Category Payer Unknown 2018 Unknown [id number] Social History Date Type Detail Facility [facility] Tobacco smoking consumption unknown [facility] Start: 03-22-2017 Tobacco smoking stat us NHIS Ex-smoker [facility] History of tobacco use Current smoker [facility] History of tobacco use Cigarette Smoker [facility] Start: 03-22-2017 End: 12-28-2020 Cigarettes smoked current (pack per day) - Reported 1.5 [facility] Start: 03-22-2017 Tobacco use and exposure Smokeless tobacco non-user [facility] Start: 12-26-2020 Alcohol intake Current drinke r of alcohol (finding) [facility] Start: 1955 Sex Assigned At Not on file [facility] Start: 12-10-2021 End: 12-24-2021 Exposure to SARS-CoV-2 (event) Not sure [facility] Start: 12-26-2020 End: 12-28-2020 Tobacco use panel [facility] National Score (1-10 0), lower number is lower risk Not on file [facility] Note 02-13-2023 Telephone Encounter - Latesha Garcia RN - 02/13/2023 11:02 AM EST Note Date & Type Note Facility 02-13-2023 Miscellaneous Notes Formattin g of this note might be different from the original. Patient's spouse, Chitra Shabazz, called in on behalf of her . Patient's employer, [employer], requesting clearance to operate vehicle/ driving. RN contacted Dr. Sams. Per Dr. Sams, patient is to see primary care physician ( PCP). PCP can clear patient and/or consult a neurologist. VAN RN notified patient's spouse, Chitra, regarding this information. documented in this encounter [facility] Note 12-23-2021 Telephone Encounter - Farhad Deal - 12/23/2021 8:30 AM EDT Note Date & Type Note Facility 12-23-2021 Miscellaneous Notes Formattin g of this note might be different from the original. Please place orders for a vascular ultrasound, patient is scheduled for tomorrow with radiology orders. Thank you. documented in this encounter [facility] History of Past illness Narrative 01-05-2017 Note Date & Type Note Facility documented as of this encounter (statuses as of 12/02/2021) [facility] History of Past illness Narrative 01-05-2017 Note Date & Type Note Facility documented as of this encounter (statuses as of 12/23/2021) [facility] History of Past illness Narrative 01-05-2017 Note Date & Type Note Facility documented as of this encounter (statuses as of 01/03/2022) [facility] History of Past illness Narrative 01-05-2017 Note Date & Type Note Facility documented as of this encounter (statuses as of 02/13/2023) [facility] Evaluation note Note Date & Type Note Facility documented in this encounter [facility] Evaluation note Note Date & Type Note Facility documented in this encounter [facility] Reason for referral (narrative) Diagnostic Procedure Only (Routine) - Pending Review Note Date & Type Note Facility Referral ID Status Reason Start Date Expiration Date Visits Requested Visits Authorized [id number] Pending Review Auto-Generat ed Referral 12/02/2021 01/01/2023 1 1 [facility] Reason for referral (narrative) Outpatient Procedure (Routine) - Authorized Note Date & Type Note Facility Referral ID Status Reason Start Date Expiration Date Visits Requested Visits Authorized [id number] Authorized Auto-Generat ed Referral 12/23/2021 12/23/2022 1 1 [facility] Summary Purpose Family History No Family History Records FoundNo Family History Records FoundNo Family History Records FoundNo Family History Records FoundNo Family History Records Found Advance Directives No Advanced Directives Records FoundNo Advanced Directives Records FoundNo Advanced Directives Records FoundNo Advanced Directives Records FoundNo Advanced Directives Records Found Additional Source Comments (unrecognized sect ion and content) No Status Records FoundNo Status Records FoundNo Status Records FoundNo Status Records FoundNo Status Records Found INFORMATION SOURCE (unrecogn ized section and content) DATE CREATED AUTHOR AUTHOR'S ORGANIZ ATION 09/16/2021 [facility] DATE CREATED AUTHOR AUTHOR'S ORGANIZ ATION 09/18/2021 [facility] DATE CREATED AUTHOR AUTHOR'S ORGANIZ ATION 01/03/2022 [facility] DATE CREATED AUTHOR AUTHOR'S ORGANIZ ATION 02/14/2023 [facility] <item> Privacy Markings (unrecogniz ed section and content) Section Author: Meenakshi Mcelroy PROHIBITION ON REDISCLOSURE OF CONFIDENTIAL INFORMATION This notice accompanies a disclosure of information concerning a client made to you with the consent of such client. Source Comments (unrecognize d section and content) In the event this informatio n is protected by the Federal Confidentiality of Alcohol and Drug Abuse Patient Records regulations: The Federal rules restrict any use of the information to criminally investigate or prosecute any alcohol or drug abuse patient.[facility] the event this information is protected by the Federal Confidentiality of Alcohol and Drug Abuse Patient Records regulations: The Federal rules restrict any use of the information to criminally investigate or prosecute any alcohol or drug abuse patient.[facility] the event this information is protected by the Federal Confidentiality of Alcohol and Drug Abuse Patient Records regulations: The Federal rules restrict any use of the information to criminally investigate or prosecute any alcohol or drug abuse patient.[facility] the event this information is protected by the Federal Confidentiality of Alcohol and Drug Abuse Patient Records regulations: The Federal rules restrict any use of the information to criminally investigate or prosecute any alcohol or drug abuse patient.[facility] Care Teams (unrecognized sec tion and content) Crochet Beader Relationship Specialty Start Date End Date Renetta Painting MD [address] [place] [address] [phone] PCP - General Family Medicine 01/02/17 Crochet Beader Relationship Specialty Start Date End Date Renetta Painting MD [address] [place] [id number] PCP - General Family Medicine 01/02/17 Crochet Beader Relationship Specialty Start Date End Date Renetta Painting MD [address] [place] [id number] PCP - General Family Medicine 01/02/17 Reason for Visit (unrecogniz ed section and content) FOR RECORDS PERTAINING TO PATIENTS WHO ARE OR HAVE BEEN ENROLLED IN A CHEMICAL DEPENDENCY/SUBSTANCEABUSE PROGRAM, SOME INFORMATION MAY BE OMITTED. This clinical summary was aggregated from multiple sources. Caution should be exercised in using it in the provision of clinical care. This summary normalizes information from multiple sources, and as a consequence, information in this document may materially change the coding, format and clinical context of patient data. In addition, data may be omitted in some cases. CLINICAL DECISIONS SHOULD BE BASED ON THE PRIMARY CLINICAL RECORDS. [facility] [facility]. provides no warranty or guarantee of the accuracy or completeness of information in this document.
[2023-04-21 12:26] LABS: Absolute Neutrophil Count 4.5 X10^3/uL (2.0-7.7); Basophil# 0.03 X10^3/uL; Basophil% 0.5 % (0-1); Eosinophil# 0.12 X10^3/uL; Hematocrit 45.6 % (40-54); Hemoglobin 15.2 g/dL (13.0-16.5); Lymphocyte % 11.9 % (19-41); Mean Corp Hgb Conc 33.3 g/dL (32-36); Mean Corpuscular Hgb 32.2 pg (27.0-32.0); Mean Corpuscular Volume 96.6 fL (80-94); Mean Platelet Vol. 9.3 fl (6.2-12.0); Monocyte# 0.49 X10^3/uL; Monocyte% 8.3 % (0-10); NRBC Flagged by Analyzer 0 % (0-5); Neutrophil # 4.52 X10^3/uL (2.7-7.7); Platelet Count 313 K/mm3 (150-450); RBC Distribution Width CV 12.7 % (11.6-14.6); RBC Distribution Width SD 45.5 fl (35.1-43.9); Red Blood Count 4.72 M/mm3 (4.6-6.2); White Blood Count 5.9 K/mm3 (4.4-11.0)
[2023-04-21 13:24] LABS: ALB/GLOB Ratio 0.8 RATIO (0.9-2.4); AST(SGOT) 31 U/L (15-37); Alanine Aminotransfer ALT/SGPT 45 U/L (16-61); Albumin, Serum 3.3 g/dL (3.2-5.0); Alkaline Phosphatase 69 U/L (45-117); Anion Gap 7 (5-15); BUN 19 mg/dL (7-18); BUN/Creat Ratio 19.6 RATIO (10-20); Chloride 103 mmol/L (98-107); Creatinine, Serum 0.97 mg/dL (0.70-1.30); EST Glomerular Filtration Rate 82 mL/min (>60); Est Glom Filt Rate - Afr Amer 99 mL/min (>60); Globulin 3.9 g/dL (2.2-4.2); Glucose 95 mg/dL (74-106); PSA,Total - Annual Screen 2.45 ng/mL (0.00-4.00); Potassium 4.3 mmol/L (3.5-5.1); Protein, Total 7.2 g/dL (6.4-8.2); Sodium Level 137 mmol/L (136-145); Thyroid Stim Hormone (TSH) 0.44 uIU/mL (0.358-3.74)
[2023-04-21 13:53] LABS: Microalbumin:Creatinine Ratio 7.8 mg/g CRE (<30 mg/g CRE)
== END | disposition home or self-care (01) ==
LOC: MFPLAB 09:48
PROVIDERS: PCP Family Medicine; Visit Provider Family Medicine
DX: Z12.5 Encounter for screening for malignant neoplasm of prostate (principal); J43.9 Emphysema, unspecified; I10 Essential (primary) hypertension; G47.30 Sleep apnea, unspecified; Z51.81 Encounter for therapeutic drug level monitoring
CPT/HCPCS: 36415; 80053; 82043; 82570; 84153; 84443; 85025; G0103

== ENCOUNTER 2023-06-15 09:36 | Day surgery (SDC) | payer MEDICARE, SELFPAY ==
--- NOTE | 2023-06-09 07:31 | EKG12_ITS ---
Test Reason : PRE OP Blood Pressure : / mmHG Vent. Rate : 052 BPM Atrial Rate : 052 BPM P-R Int : 128 ms QRS Dur : 086 ms QT Int : 460 ms P-R-T Axes : 012 056 063 degrees QTc Int : 427 ms Sinus bradycardia Otherwise normal ECG Confirmed by Evin Brady ([id number]), assistant editor KELLIE SPARKS ([id number]) on 06/12/2023 1:59:00 PM Referred By: Aleksandr Avalos Confirmed By:Evin Brady
[2023-06-15] VITALS (7 sets, daily range): BP systolic 134–143; BP diastolic 76–90; PULSE 55–74; RESP 16–18; TEMP 36.4–37.1; O2SAT 94–99; BMI 26.6
[2023-06-15] MEDS: Bupivacaine Mpf 0.5% 30 ML VIAL (10:13)
[2023-06-15] MEDS: Lactated Ringers 1,000 ML 15 ML IV (10:18)
--- NOTE | 2023-06-15 10:23 | HP.PCM_ITS ---
History and Physical Date of Admission: 06/15/23 Intake Vital Signs 09/09/2308:06 05/22/2412:24 Height 5 ft 7 in 5 ft 7 in Weight: 171 lb BMI 26.7 BP 143/84 H Blood Pressure Location Rt brachial Position Sitting Respiration 16 Pulse 61 Pulse Oximetry (%) 96 Oxygen Delivery Method room air Intake Visit Reasons: UMBILICAL HERNIA Chief Complaint: umbilical hernia Equipment Operator/Laborer/Supervisor Required: No Is patient in pain?: No Allergies acetaminophen [From Percocet] Allergy (Verified 05/22/23 13:25) Itchingoxycodone [From Percocet] Allergy (Verified 05/22/23 13:25) Itching Medications aspirin 81 mg tablet,delayed release 1 tab PO DAILY 05/15/17 [History Confirmed 04/21/23] acetaminophen 500 mg tablet (Tylenol Extra Strength) 500 mg PO Q6H PRN 09/09/22 [History Confirmed 05/22/23] amino acids 700 mg tablet mg PO 09/09/22 [History Confirmed 05/22/23] etodolac 500 mg tablet 500 mg PO BID #60 tabs 09/09/22 [Rx Confirmed 05/22/23] ibuprofen 200 mg tablet 200 mg PO Q6H PRN 09/09/22 [History Confirmed 05/22/23] multivitamin 1 tab PO DAILY 09/09/22 [History Confirmed 05/22/23] tadalafil 5 mg tablet ea PO 09/09/22 [History Confirmed 05/22/23] turmeric 400 mg capsule mg PO 04/21/23 [History Confirmed 05/22/23] ashwagandha root extract 500 mg capsule mg PO 05/22/23 [History Confirmed 05/22/23] buspirone 5 mg tablet 2.5 mg PO 05/22/23 [History Confirmed 05/22/23] ramipril 2.5 mg capsule 10 mg PO 05/22/23 [History Confirmed 05/22/23] [facility] Medical History (Updated 05/22/23 @ 15:[address] Aleksandr Avalos MD) Colon cancer screening Erectile dysfunction Carmen syndrome HTN (hypertension) Hyperglycaemic coma with insulin-dependent diabetes mellitus Osteoarthritis of right knee Raynauds disease Right knee pain Umbilical hernia Surgical History (Updated 05/22/23 @ 13:29 by Olesya Torres) History of uvulectomy S/P adenoidectomy S/P carpal tunnel release S/P correction of deviated nasal septum S/P tonsillectomy Family History (Updated 05/22/23 @ 13:31 by Olesya Torres) Father Asthma Hypertension DiabetesMother Diabetes Heart diseaseGrandmother DiabetesDaughter Diabetes Social History (Updated 05/22/23 @ 13:31 by Olesya Torres) Smoking Status: Former smoker alcohol intake: current HPI HPI HPI: This 68-year-old male here with umbilical hernia. He says it has been there for several years. He reports that it easily is reduced. ROS General General: No weight change, appetite, fatigue, colon cancer, breast cancer or weakness HEENT HEENT: Yes eye injury and eye surgery; No difficulty swallowing, swollen glands or hoarseness Endo Endocrine: No thyroid disease, diabetes mellitus, thyroid cancer, Hair loss, heat intolerance or cold intolerance Skin Skin: No rash or changing moles Breast Breast: No left breast lump, right breast lump, nipple discharge, breast pain, abnormal mammogram, abnormal US or breast enlargement Musc Musculoskeletal: Yes arthritis; No back problems, rheumatoid arthritis, gout or joint pain Cardio Cardiovascular: Yes high blood pressure; No murmur, pacemaker, heart disease, atrial fibrillation, heart attack, heart stent, palpitations, shortness of breat with exertion or chest pain Psych Psychiatric: Yes anxiety; No depression or hearing voices Resp Respiratory: Yes shortness of breath, Yes sleep apnea, No cough, No COPD, Yes asthma, Yes emphysema and No wheezing Gastro Gastrointestinal: No abdominal pain, No nausea or vomiting, No diarrhea, No constipation, No blood in stool, No acid reflux, No hemorrhoids, No ulcers, No gallbladder problem and No black,tarry stools Prashanth Hematologic: No blood thinners, No blood disorders, No bleeding, No anemia and No blood clots Neuro Neurologic: No system reviewed and no additional complaints, except as documented, No as per HPI, No abnormal gait, No abnormal hearing, No abnormal movements, No abnormal speech, No behavioral changes, No burning sensations, No confusion, No convulsions, No disequilibrium, No dizziness, No localized weakness, No frequent falls, No headache(s), No lack of coordination, No loss of vision, No memory loss, No numbness, No other visual disturbances, No radicular pain, No restless legs, No sensory deficit, No syncope, No tingling, No tremor(s), No weakness and No other Exam Const General: cooperative Orientation: alert and oriented x3 HENMT Head: normal to inspection Neck Neck: normal visual inspection and full ROM Chest Chest palpation & inspection: normal inspection of the chest Resp Effort & Inspection: normal respiratory effort Auscultation: clear to auscultation bilaterally Cardio Rate: regular rate Rhythm: regular rhythm GI Inspection: non-distended Palpation: soft, hernia umbilical and nontender Skin General: no rashes or lesions noted Neuro General: patient alert and patient oriented x3 Extrem General: full ROM Psych Appearance: grossly normal Mental Status: mental status grossly normal Assessment and Plan Assessment and Plan (1) Umbilical hernia: Status: Acute Qualifiers: Obstruction and gangrene presence: without obstruction or gangrene Qualified Code(s): K42.9 - Umbilical hernia without obstruction or gangrene Plan: Patient has a small umbilical hernia. It feels like it is larger than 1 cm I recommended mesh placement. I discussed umbilical hernia repair with him in detail. I discussed the risks including not limited to bleeding, infection, injury other organs or recurrence. Patient understands the risks and is willing to proceed. Aleksandr Avalos MD Pager: [facility] [address] [place] [address], [address] [place] [address] Office: I have examined the patient and the H&P has been reviewed. There are no clinical changes since date of exam.
[2023-06-15] MEDS: Cefazolin 2 GM in 0.9% Normal Saline (100mL Bag) 100 ML IV (10:45)
--- NOTE | 2023-06-15 11:33 | PCM.OPRPT ---
Report of Operation Date of Procedure: 06/15/23 Pre-Operative Diagnosis: Umbilical hernia less than 3 cm Post-Operative Diagnosis: Same Surgery/Procedure Performed:: Umbilical hernia repair with mesh less than 3 cm Type of Anesthesia: General/Regional Estimated Blood Loss (mL): 10 Description of Procedure: Patient was brought to the operating room and general anesthesia was induced. The abdomen was prepped and draped in usual sterile fashion. A curvilinear incision was marked superior to the umbilicus and injected with local anesthetic. Incision was then made with a scalpel and the hernia sac was dissected free from the umbilical stalk. The hernia was dissected free circumferentially and then reduced. The fascia was grasped and elevated and the preperitoneal space was developed circumferentially. Next a medium Ventralex ST mesh was placed into the preperitoneal space and sutured to the anterior fascia using 2-0 PDS sutures. Next the area was irrigated and suctioned dry. The fascia was then reapproximated in a transverse fashion using interrupted #1 Nurolon sutures. The subcutaneous tissue was irrigated and suctioned dry and the skin was closed with interrupted 3-0 Vicryl sutures. Steri-Strips were placed and then the dressing was placed. Patient was awoken and taken to PACU in stable condition and tolerated the procedure well. Grafts/Implants Used: Medium Ventralex ST mesh at the umbilical space Admit VTE Documentation VTE Mechan Device Prophylaxis: SCD's
--- NOTE | 2023-06-15 11:36 | DCINST_ITS ---
Discharge Instructions Procedure Hernia Diet Discharge Diet: Light diet - advance as tolerated Activity Discharge Activity: May Not Drive (for 2-3 days or while taking narcotic pain meds.) and May Shower (with the bandage in place 1-2 days after surgery.) Lifting Restrictions: 15 pounds for 4 weeks Additional Activity Instructions:: Climbing stairs is fine, walking is encouraged. Sitting in bed may be uncomfortable. Sitting up using your lateral muscles (sitting up sideways) is usually more comfortable. Do not drive, work heavy equipment of sign legal documents for 24 hours. Pain medications may cause nausea, you should typically eat light foods as you take your pain medications. Pain medications may also cause constipation. If you have difficulty with this, discuss with your doctor. Dressing / Incision Call your doctor if your incision/area has: Continuous Slow Oozing, Sudden Increased Bleeding, Increased Pain/ Swelling, Increased Redness and Foul Smelling Discharge Call your doctor if you observe: Fever of 101 or Higher Suture Line Care: Avoid Pulling/Pushing and Avoid Pinching/Bending Remove Dressing in: 2 days (Remove clear bandages in 2 days, remove Steri-Strips in 7 to 10 days.) Cleanse incision/area with: Soap & Water Follow Up Care Please Follow Up With: Aleksandr Avalos MD When: Please call to schedule 2 week follow up appointment. [phone] Test Results: Test results from this visit will be discussed in further detail at your follow- up appointment, if applicable. Discharge Plan Admission Attending Provider: Aleksandr Avalos Primary Care Provider: Eugenio Painting Instructions Additional Instructions / Restrictions: Alternate ibuprofen and Tylenol for pain, Ultram for breakthrough pain. May resume aspirin on Monday Discharge Orders/Prescriptions Prescriptions: New tramadol 50 mg Tablet 50 - 100 mg PO Q6H PRN PRN (Reason: Pain Score 4-10) 5 Days Qty: 15 0RF No Action multivitamin Tablet 1 tab PO DAILY acetaminophen [Tylenol Extra Strength] 500 mg tablet 500 mg PO Q6H PRN (Reason: pain) tadalafil 5 mg tablet 5 mg PO DAILY amino acids 700 mg tablet 700 mg PO DAILY buspirone 5 mg tablet 1 mg PO QHS ramipril 2.5 mg capsule 10 mg PO QHS turmeric 400 mg capsule 400 mg PO DAILY ashwagandha root extract 500 mg capsule 500 mg PO QHS aspirin 81 MG tablet 1 tab PO DAILY etodolac 500 mg tablet 500 mg PO QHS Rx Instructions: Take regularly for 1 week then as needed. do not take in conjunction with ibuprofen or other NSAID. Tylenol is okay. budesonide-formoterol [Symbicort] 80-4.5 mcg/actuation HFA aerosol inhaler 2 inh inhalation BID albuterol 90 mcg/actuation aerosol 90 mcg inhalation Q4H PRN PRN (Reason: SOB/WHEEZING) Other Ambulatory Orders: 12 Lead EKG (Routine) Timeframe: [id number] Location: None Selected Ordered By: Dr. Reggie Archibald Referrals / Follow Up: Eugenio Painting MD [Primary Care Provider] - Disposition Disposition (needs filled in before D/C Order can be placed): Home, Self Care
[2023-06-15] MEDS: traMADol 50 MG Tablet 100 MG PO (12:41)
== END 2023-06-15 13:46 | disposition home or self-care (01) ==
LOC: SDC 09:41 → AC 09:42
PROVIDERS: PCP Family Medicine; Referring Provider Surgery; Visit Provider Surgery
PROC: (CPT 49591; principal; 2023-06-15 10:55)
DX: K42.9 Umbilical hernia without obstruction or gangrene (principal); E11.9 Type 2 diabetes mellitus without complications; Z79.4 Long term (current) use of insulin; I10 Essential (primary) hypertension; F41.9 Anxiety disorder, unspecified; G47.30 Sleep apnea, unspecified; Z87.891 Personal history of nicotine dependence; Z79.51 Long term (current) use of inhaled steroids; Z79.82 Long term (current) use of aspirin; Z79.899 Other long term (current) drug therapy; Z86.711 Personal history of pulmonary embolism
CPT/HCPCS: 49591; 00830; 93005; C1781; J7120; J2405

== ENCOUNTER → 2024-03-22 | Outpatient (CLI) | payer MEDICARE, SELFPAY ==
--- NOTE | 2024-03-22 07:41 | CT_ITS ---
CT RIGHT LOWER EXTREMITY WITH 3-D IMAGING CLINICAL INDICATION: templating for right TKA TECHNIQUE: Axial CT images of the RIGHT lower extremity was performed without IV contrast material. Coronal and sagittal reformats were provided. The protocol utilizes one or more of the following dose reduction techniques: automated exposure control, adjustment of mA and/or kV according to patient size,and/or use of iterative reconstruction technique. RADIATION DOSAGE (If Supplied By Facility): CTDIvol = ( 18.73 ) mGy, DLP = ( 1417.83 ) mGycm COMPARISON: Radiographs of the knee of 02/05/2024. FINDINGS: Bones: Osseous structures are normal without evidence of fracture or dislocation. No lytic or blastic osseous masses. Joints: Subchondral cystic changes of the medial aspect of the acetabular roof and of the femoral head. The hip joint is within normal limits. Moderate to severe narrowing of the medial joint compartment with marginal degenerative spurs. Sclerosis of the tibial surface with mild subchondral cystic changes. Mild marginal degenerative spurs of the lateral joint compartment no evidence of joint effusion. Soft Tissues: The deep soft tissue structures are unremarkable. The superficial soft tissues are unremarkable without evidence of edema, hematoma, or foreign body. CT/Extremity Lower without Contra IMPRESSION: 1. Moderate to severe degenerative arthrosis of the knee. 2. Mild degenerative arthrosis of the right hip. Electronically Signed: Nic Wise MD at 16:25 EST ,
--- NOTE | 2024-03-22 07:42 | CT_ITS ---
STUDY: LOW DOSE CT LUNG CANCER SCREENING REASON FOR EXAM: Male, 68 years old. TOBACCO USE RADIATION DOSAGE (If Supplied By Facility): CTDIvol = ( 3.02 ) mGy, DLP = ( 105.71 ) mGycm TECHNIQUE: No contrast was administered. Low dose technique was utilized (average mAS-38 and kVp 120). 1.25 mm axial source images with a slice interval of 1.25-mm were reconstructed in lung windows. 2.5 mm axial source images with a slice interval of 2.5-mm were reconstructed in lung windows. 5.0 mm axial source images with a slice interval of 5.0-mm were reconstructed in soft tissue windows. COMPARISON: 02/10/2023 Emphysema: Mild emphysema. No noncalcified nodule or mass. Endobronchial lesion: None Aorta: Some calcified plaque in the aortic arch but no thoracic aortic aneurysm. CORONARY ARTERIES: Coronary artery calcification is seen. Heart: No cardiomegaly. Pulmonary artery: Normal Mediastinal nodes: Normal Other chest and abdominal findings: Multiple healed right rib fractures. CT/Low Dose CT Lung Screening IMPRESSION: Lung-RADS category 1 - Continue annual screening with LDCT in 12 months. IMPORTANT NOTES FOR USE: ACR Lung-RADS Version 1.1 Assessment Categories Release Date: 2018 Category: Coded 0-4 bases on nodule(s) with highest degree of suspicion. Negative screen is defined as categories 1 and 2; a positive screen is defined as categories 3 and 4. Category 3 and 4A nodules that are unchanged on interval CT should be coded as category 2, and individuals returned to screening in 12 months. Category 4X: Category 3 or 4 nodules with additional imaging findings that increase the suspicion of lung cancer, such as spiculation, GGN that doubles in size in 1 year, enlarged lymph notes, etc. Category Modifiers: S (significant finding unrelated to lung cancer) Electronically Signed: Jesus Sharif MD at 13:59 EST ,
== END | disposition home or self-care (01) ==
PROVIDERS: PCP Family Medicine; Referring Provider Orthopaedic Surgery; Visit Provider Orthopaedic Surgery
DX: M17.11 Unilateral primary osteoarthritis, right knee (principal); Z87.891 Personal history of nicotine dependence
CPT/HCPCS: 71271; 73700

== ENCOUNTER → 2024-04-01 | Outpatient (CLI) | payer MEDICARE, SELFPAY ==
--- NOTE | 2024-04-01 16:33 | RAD_ITS ---
STUDY: X-RAY CHEST REASON FOR EXAM: Male, 68 years old. Unspecified asthma with (acute) exacerbation TECHNIQUE: PA and lateral views of the chest. COMPARISON: 01/10/2019 FINDINGS: The lungs are clear and expanded. There is no demonstrated pleural abnormality. Normal size heart. Normal mediastinum and faheem. Normal visualized pulmonary arteries. Normal visualized aortic arch and descending thoracic aorta. Normal visualized thoracic spine. Normal visualized ribs, clavicles, and shoulders. There is no demonstrated abnormality of the visualized soft tissue structures of the upper abdomen. RAD/Chest PA and Lateral IMPRESSION: Normal x-ray examination of the chest. Electronically Signed: Jesus Sharif MD at 13:30 [facility] ,
== END | disposition home or self-care (01) ==
PROVIDERS: PCP Family Medicine
DX: J45.901 Unspecified asthma with (acute) exacerbation (principal)
CPT/HCPCS: 71046

== ENCOUNTER 2024-04-18 08:44 | Day surgery (SDC) | payer MEDICARE, SELFPAY ==
[2024-03-22 08:15] LABS: Absolute Lymphocyte Count 1.03 X10^3/uL (0.83-4.51); Absolute Neutrophil Count 2.8 X10^3/uL (2.0-7.7); Basophil# 0.03 X10^3/uL; Basophil% 0.7 % (0-1); Eosinophil# 0.28 X10^3/uL; Eosinophils% 6.2 % (0-5); Hemoglobin 14.9 g/dL (13.0-16.5); Lymphocyte # 1.03 X10^3/ul (0.83-4.51); Lymphocyte % 22.7 % (19-41); Mean Corp Hgb Conc 34.7 g/dL (32-36); Mean Corpuscular Hgb 32.7 pg (27.0-32.0); Mean Corpuscular Volume 94.5 fL (80-94); Mean Platelet Vol. 9.1 fl (6.2-12.0); Monocyte# 0.41 X10^3/uL; NRBC Flagged by Analyzer 0 % (0-5); Neutrophil # 2.77 X10^3/uL (2.7-7.7); Platelet Count 286 K/mm3 (150-450); RBC Distribution Width CV 12.8 % (11.6-14.6); RBC Distribution Width SD 44.1 fl (35.1-43.9); Red Blood Count 4.55 M/mm3 (4.6-6.2); White Blood Count 4.5 K/mm3 (4.4-11.0)
[2024-03-22 08:25] LABS: Prothrombin Time (Protime)PT. 12.9 SECONDS (11.7-14.9)
[2024-03-22 08:26] LABS: Partial Thromboplast Time 25.1 Seconds (24.1-36.2)
[2024-03-22 08:39] LABS: Magnesium 2.3 mg/dL (1.6-2.6)
[2024-03-22 08:39] LABS: Hemoglobin A1c 5.3 % (3.8-5.6)
[2024-03-22 08:42] LABS: Anion Gap 5 (5-15); BUN 19 mg/dL (7-18); BUN/Creat Ratio 16.8 RATIO (10-20); Chloride 108 mmol/L (98-107); Creatinine, Serum 1.13 mg/dL (0.70-1.30); EST Glomerular Filtration Rate 69 mL/min (>60); Est Glom Filt Rate - Afr Amer 83 mL/min (>60); Glucose 109 mg/dL (74-106); Potassium 4.1 mmol/L (3.5-5.1); Sodium Level 138 mmol/L (136-145)
[2024-03-23 07:07] LABS: Fructosamine 235 umol/L (0-285)
[2024-04-18] VITALS (11 sets, daily range): BP systolic 138–175; BP diastolic 82–100; PULSE 55–75; RESP 10–18; TEMP 36.1–37.3; O2SAT 95–99; BMI 28.4
[2024-04-18] MEDS: 0.9% Normal Saline (1000mL) 1,000 ML 15 ML IV (09:48)
[2024-04-18] MEDS: Acetaminophen 500 MG Tablet 1000 MG PO ×2 (09:48→17:10)
[2024-04-18] MEDS: Celecoxib 200 MG Capsule 400 MG PO (09:48)
[2024-04-18] MEDS: Magnesium 1 GM over 15 mins IV (09:48)
[2024-04-18] MEDS: Gabapentin 600 MG Tablet PO (09:48)
[2024-04-18] MEDS: Scopolamine 1mg/72hr Patch 1 PATCH TD (09:49)
--- NOTE | 2024-04-18 10:14 | PRE.ANES_ITS ---
ASA Classification* ASA Classification ASA Classification: 2 Assessment & Plan Anesthesia* Anesthesia Assessment Anesthesia Assessment: Discussed sedation and/or anesthesia options, risks, benefits, and alternatives with patient/parents/legal guardian/POA. Questions invited. The patient/parents/legal guardian/POA seems to understand and agrees to proceed with anesthesia plan. Reviewed the physical assessment, medical history, allergy history and patient home medications list prior to surgery/procedure/anesthetic and documented any changes. Performed airway and anesthesia risk assessments. Anesthesia Type Anesthesia Type: Spinal and Block Anesthesia Focused Assessment* Temperature: 97.4 F Pulse Rate: 55 Blood Pressure: 151/82 Respiratory Rate: 16 Pulse Ox: 97 Airway Assessment Mouth opens: >3 cm Mallampati Score: II Focused Labs Anesthesia Preop lab: CBC WBC 4.5 K/mm3 (4.4-11.0) 03/22/24 07:56 RBC 4.55 M/mm3 (4.6-6.2) L 03/22/24 07:56 Hgb 14.9 g/dL (13.0-16.5) 03/22/24 07:56 Hct 43.0 % (40-54) 03/22/24 07:56 Plt Count 286 K/mm3 (150-450) 03/22/24 07:56 CHEMISTRY Potassium 4.1 mmol/L (3.5-5.1) 03/22/24 07:56 Sodium 138 mmol/L (136-145) 03/22/24 07:56 Magnesium 2.3 mg/dL (1.6-2.6) 03/22/24 07:55 BUN 19 mg/dL (7-18) H 03/22/24 07:56 Creatinine 1.13 mg/dL (0.70-1.30) 03/22/24 07:56 Glucose 109 mg/dL (74-106) H 03/22/24 07:56 TSH 0.44 uIU/mL (0.358-3.74) 04/21/23 09:53 COAG PT 12.9 SECONDS (11.7-14.9) 03/22/24 07:56 Pre-Assessment Diagnosis/Proposed Procedure Planned Operative Procedure(s): (R) ERAS, Right Total Knee Replacement Robotic Arm Assisted Anesthesia History 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 When Was Last Pacemaker Check QUESTION #4 FULL TEXT: You/Your Family Experience fever (hyperthermia) with Anesthesia Last Oral Intake Last Oral intake: Last Oral Intake NPO since 06:30 04/18/24 09:15 Meds taken in AM with sips of No 04/18/24 09:15 water? Meds patient instructed to take am of surgery PONV PONV - supervisor [employer]ing [employer]: PONV - supervisor [employer] Female Yes 03/19/24 14:15 HX of Motion Sickness No 03/19/24 14:15 HX of N/V After Surgery No 03/19/24 14:15 Non-Smoker Yes 03/19/24 14:15 Duration of Surgery greater Yes 03/19/24 14:15 than 60 minutes Number of Risk Factors 3 03/19/24 14:15 PONV Score Moderate Risk 03/19/24 14:15 Height & Weight Height & Weight: Anesthesia: Height & Weight Height 5 ft 7 in 04/18/24 09:15 Weight: 82.4 kg 04/18/24 09:15 Body Mass Index (BMI) 28.4 04/18/24 09:15 Respiratory Assessment Respiratory Assessment - supervisor [employer]: Respiratory Tract Infection Hx - supervisor [employer] Hx Respiratory Tract Infection No 03/19/24 14:15 STOP Sleep Apnea STOP Sleep Apnea - supervisor [employer]: STOP Sleep Apnea - supervisor [employer] Hx Hypertension Yes: CONTROLLED WITH MED 03/19/24 14:15 Hx Sleep Apnea Yes 03/19/24 14:15 CPAP No 03/19/24 14:15 BIPAP Yes 03/19/24 14:15 Do you snore loudly (louder than talking or can be heard Do you often feel tired/ fatigued/ sleepy during daytime? Has anyone observed you stop breathing during sleep? STOP Results Positive 03/19/24 14:15 QUESTION #5 FULL TEXT : Do you snore loudly (louder than talking or can be heard through closed doors)? 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 Specify any problems Hx of Preganancy in last 3 N/A 03/19/24 14:15 Months Nurse Filling Out Transfusion VCHRISTIN 03/19/24 14:15 & Questions: Date: 03/19/24 03/19/24 14:15 Time: 14:16 03/19/24 14:15 Patient unable to answer at this time (ie. confused, unrespo /Reproduction History /Reproductive History - supervisor [employer]: /Reproductive Hx- supervisor [employer] Hx Now Gestational Age (in weeks): EDC: Hx Hx Para Hx Section SAB Active Medications Active Medications: Current Medications Generic Name Dose Route Start Last Admin Trade Name Odell PRN Reason Stop Dose Admin Acetaminophen 1,000 mg 04/18/24 10:45 04/18/24 09:48 Acetaminophen 500 Mg Tablet PO 04/18/24 10:46 1,000 mg X1 ONE Administration Celecoxib 400 mg 04/18/24 10:45 04/18/24 09:48 Celecoxib 200 Mg Capsule PO 04/18/24 10:46 400 mg X1 ONE Administration Dexamethasone Sodium Phosphate 10 mg 04/18/24 10:45 Dexamethasone 10 Mg/Ml Vial IV 04/18/24 10:46 X1 ONE Gabapentin 600 mg 04/18/24 10:45 04/18/24 09:48 Gabapentin 600 Mg Tablet PO 04/18/24 10:46 600 mg X1 ONE Administration Cefazolin Sodium 2 gm/ N/A 20 mls @ 400 mls/hr 04/18/24 10:45 IV 04/18/24 10:47 PREOP ONE Tranexamic Acid 1,000 mg/ 110 mls @ 660 mls/hr 04/18/24 10:45 Sodium Chloride IV 04/18/24 10:54 X1 ONE Tranexamic Acid 1,000 mg/ 110 mls @ 660 mls/hr 04/18/24 11:45 Sodium Chloride IV 04/18/24 11:54 X1 ONE Lactated Ringer's 1,000 mls @ 125 mls/hr 04/18/24 11:45 IV 04/18/24 19:44 .Q8H FLOR Magnesium Sulfate 1 gm/ 102 mls @ 408 mls/hr 04/18/24 10:45 04/18/24 09:48 Dextrose IV 04/18/24 10:59 408 mls/hr X1 ONE Administration Sodium Chloride 1,000 mls @ 15 mls/hr 04/18/24 09:00 04/18/24 09:48 IV 04/23/24 22:19 15 mls/hr .Q48H FLOR Administration Protocol Insulin Human Lispro 1 - 6 unit 04/18/24 10:45 Insulin Lispro 100 Unit/Ml Insuln.Pen SC 04/18/24 16:45 Q4H PRN PRN BG>/= 180, SEE PROTOCOL Protocol Scopolamine HBr 1 patch 04/18/24 10:45 04/18/24 09:49 Scopolamine 1mg/72hr Patch TD 04/18/24 10:46 1 patch X1 ONE Administration Sodium Chloride 5 - 15 ml 04/02/24 07:30 0.9% Nacl Peripheral Flush Adult/Peds IV UD PRN SALINE FLUSH PFSH Medical History Wears hearing aid Wears dentures Anxiety Alcohol use History of steroid therapy Pulmonary embolism Former smoker BiPAP (biphasic positive airway pressure) dependence Emphysema, unspecified Carmen syndrome Erectile dysfunction Umbilical hernia Hyperglycaemic coma with insulin-dependent diabetes mellitus Raynauds disease HTN (hypertension) Osteoarthritis of right knee Right knee pain Colon cancer screening Home Medications ?Medication ?Instructions ?Recorded ?Last Taken ?Type aspirin 81 mg tablet,delayed 1 tab PO DAILY 05/15/17 06/01/23 History release acetaminophen 500 mg tablet 500 mg PO Q6H PRN pain 09/09/22 06/14/23 History (Tylenol Extra Strength) multivitamin 1 tab PO DAILY 09/09/22 06/14/23 History tadalafil 5 mg tablet 5 mg PO DAILY ERECTILE DYSFUNCTION 09/09/22 06/14/23 History ramipril 2.5 mg capsule 10 mg PO QHS 05/22/23 06/14/23 History albuterol 90 mcg/actuation aerosol 90 mcg inhalation Q4H PRN PRN 06/07/23 04/18/24 07:00 History inhaler SOB/WHEEZING budesonide-formoterol HFA 80 2 inh inhalation BID 06/07/23 04/18/24 07:00 History mcg-4.5 mcg/actuation aerosol inhaler (Symbicort) etodolac 500 mg tablet 500 mg PO BID PRN pain #50 tabs 11/03/23 Unknown Rx donepezil 10 mg tablet 10 mg PO QHS 11/21/23 Unknown History omega 3-qiz-vlr-fish oil 1,200 mg 1 cap PO DAILY 03/19/24 Unknown History (144 mg-216 mg) capsule (Fish Oil) ipratropium 0.5 mg-albuterol 3 mg 3 ml inhalation BID PRN PRN 04/11/24 Unknown History (2.5 mg base)/3 mL nebulization wheezing soln Allergy/AdvReac Type Severity Reaction Status Date / Time oxycodone (From Percocet) Allergy Itching Verified 04/18/24 09:09 Family History Father Asthma Hypertension Diabetes Mother Diabetes Heart disease Grandmother Diabetes Daughter Diabetes Surgical History Hx of hernia repair History of brain surgery History of cataract extraction with lens replacement History of uvulectomy S/P correction of deviated nasal septum S/P adenoidectomy S/P tonsillectomy S/P carpal tunnel release Social History Smoking Status: Former smoker alcohol intake: current additional social history: quit chewing four months ago, denies vaping, denies marijuana use, denies edibles ibuprofen and aspirin daily. Review of Systems (Anesthesia) ROS Narrative System reviewed and no additional complaints, except as documented.
[2024-04-18 10:17] LABS: Bedside Glucose 100 mg/dL (74-106)
--- NOTE | 2024-04-18 10:21 | HP.PCM_ITS ---
History and Physical Date of Admission: 04/18/24 [facility] [address] [place] [address] OFFICE VISIT Date of Service: 02/05/24 MR#: [id number] Acct: [id number] Name: FLAVIO MEDEIROS Rep #: [id number] : [id number] Provider: Dr. Wilberto Nguyen DO Age/Sex: 68/M Location: [facility] [place] [place] Status: Signed Intake Vital Signs 12/21/2408:04 Height 5 ft 7 in BP 162/82 H Blood Pressure Location Rt brachial Position Sitting Respiration 16 Temp 98.6 F Temp Source Oral Pulse Oximetry (%) 99 Oxygen Delivery Method room air Intake Visit Reasons: RIGHT KNEE Allergies oxycodone (From Percocet) Allergy (Verified 12/22/23 09:06) Itching Have you fallen in the past year?: No PFSH Medical History Wears hearing aid Wears dentures Anxiety Alcohol use History of steroid therapy Pulmonary embolism Chewing tobacco dependence Former smoker BiPAP (biphasic positive airway pressure) dependence Sleep apnea Emphysema, unspecified Carmen syndrome Erectile dysfunction Umbilical hernia Hyperglycaemic coma with insulin-dependent diabetes mellitus Raynauds disease HTN (hypertension) Osteoarthritis of right knee Right knee pain Colon cancer screening Surgical History History of brain surgery History of cataract extraction with lens replacement History of uvulectomy S/P correction of deviated nasal septum S/P adenoidectomy S/P tonsillectomy S/P carpal tunnel release Family History Father Asthma Hypertension DiabetesMother Diabetes Heart diseaseGrandmother DiabetesDaughter Diabetes Social History Smoking Status: Former smoker alcohol intake: current additional social history: quit chewing four months ago, denies vaping, denies marijuana use, denies edibles ibuprofen and aspirin daily. HPI RIGHT KNEE Details: This documentation accurately reflects the service provided and the decisions made by me, Dr. Wilberto Nguyen, DO 02/05/24 2650. Part of today?s visit was documented by Meghan SANTAMARIA, acting as scribe. FLAVIO MDEEIROS is a 68 year old M here today for the right knee. He is here to discuss right knee replacement. Flavio has well-known right knee arthrosis he has been suffering this with this for quite some time he has had steroid and viscosupplementation injections and he thought he could hold off on proceeding with knee replacement until later in the winter however he is really limited because of his knee it is waking him up. Pain is mostly medial and he feels it is affecting his quality of life Ortho Exam General General: Yes no acute distress Neurologic: Yes alert and Yes oriented x3 Psychologic: Yes reasonable and appropriate Right Knee Skin/Wound: Yes CDI, No erythema, No ecchymosis and No swelling Knee ROM: Yes ROM-Extension -20 to 0 and Yes ROM-Flexion 0-140 (115) Examination: Yes Med jt line tenderness, No Lat jt line tenderness, No TTP Pes Anserine and No Illiotibial band tenderness Stability: NML: Anterior Drawer, NML: Posterior Drawer, NML: Valgus 0, NML: Valgus 30, NML: Varus 0 and NML: Varus 30 Patella Translation: 1 Patella Grind: Yes KNEE: does have an effusion 3mm medial gapping Constitutional: Well-developed; well-nourished; in no acute distress Eyes: No jaundice ENT: Nares patent; no obvious deformity Cardiovascular: No cyanosis; clubbing; or edema Lymphatic: No adenopathy in area of examination Skin: No rashes or lesions in the area of examination and intact Neurologic: Alert and oriented x 3 Psychiatric: Mood and affect appropriate Head: Normocephalic Atraumatic Chest: symmetrical rise, non-labored breathing, no audible wheeze Abdomen: no guarding, non-rigid Left Knee Patella Translation: 1 Supplemental Info 09/09/2022 x-ray right knee: Progression of knee arthritis from previous x-ray 11/26/2021 x-ray right knee: Moderate medial compartment arthrosis with joint space narrowing and spurring there is moderate spurring of the lateral compartment patellofemoral arthrosis with spurring Coding Level of Care Code Off vis,est,level 4 Diagnoses Chronic pain of right knee M25.561; G89.29 Chronicity: chronic Primary osteoarthritis of right knee M17.11 Osteoarthritis type: primary Assessment and Plan Assessment and Plan (1) Right knee pain: Status: Acute Qualifiers: Chronicity: chronic Qualified Code(s): M25.561 - Pain in right knee; G89.29 - Other chronic pain (2) Osteoarthritis of right knee: Status: Acute Qualifiers: Osteoarthritis type: primary Qualified Code(s): M17.11 - Unilateral primary osteoarthritis, right knee Orders: Orders Knee 4 or More Views Today M17.11 - Unilateral primary osteoarthritis, right knee Plan Patient is here today for continued right knee pain. We did discuss knee replac ement today. Did inform patient about the mechanical feel after having a knee replacement. Risks, benefits and alternatives of surgery reviewed including but not limited to bleeding, infection, nerve, artery and/or tissue damage, fracture, VTE, mechanical feel of the knee, continued pain, stiffness and expected post-operative course.?Reviewed the pre-operative plans with the patient. Risks and benefits of the procedure were fully explained, including but not limited to infection, neurovascular injury, continued pain, arthritis, stiffness, need for further surgery, re-injury, DVT, PE, general risks of anesthesia, and loss of limb or life. The patient understands all the risks and does wish to proceed with written consent. Did inform patient to plan for 3 month off of work. He will have to be on a blood thinner post-operatively. He will need to do at least 6 weeks of physical therapy 3 times a week. Advised patient that if by 6 weeks he doesn't have his ROM we would do a manipulation under anesthesia if he wished to proceed with that. He will need an antibiotic the first year for all dental work then after the first year he will need it only for procedures. I did talk to the patient about the IOVERA treatment that does help with the incision pain post-operatively. If his insurance does cover it he would like to proceed with the IOVERA. Did inform patient about the robotic technology used for the knee replacement. I explained to him some people never feel comfortable kneeling after knee replacement but if he does kneel I would recommend a knee pad. We will need medical clearance we will need to check his A1c and fructosamine He will be a same-day surgery He will need CT scan for MAKOplasty He will need to hold NSAIDs for 7 days preoperatively he would like surgery date as soon as possible Clinical Quality Measures Falls Risk Screening/Assistive Devices Have you fallen in the past year?: No 02/05/24 1626 <Electronically signed by Wilberto Nguyen DO> Date Wilberto Nguyen DO Cosigner Signature: Date (if applicable) I have examined the patient and the H&P has been reviewed. There are no clinical changes since date of exam.
--- NOTE | 2024-04-18 10:45 | KNEE_PTH ---
PATIENT: LORENA MEDEIROS [place] [facility] [id number] AGE/SX: 69/M ROOM: RE04/18/[address]: Dr. Wilberto Nguyen DO : 1955 BED: DIS: 04/18/2024 SPEC #: [id number] RECD: 04/18/24 17:43 STATUS: CHLOE RESteffi #: [id number] GINA: 04/18/24 10:[address]: Wilberto Nguyen DEPT: SURGICAL PATHOLOGY RECD BY: Reena Morales ENTERED: 04/19/24 07:11 SP TYPE: TOTAL KNEE OTHR DR: Dr. Eugenio Painting MD Tissues: Knee, NOS Procedures: Decalcification bone/plaque Surgery Specimen Level IV HEADER OPERATION: Total knee replacement robotic arm assist PRE-OP DIAGNOSIS: Chronic pain of right knee, primary osteoarthritis of right knee TISSUE SUBMITTED: Right patella MICROSCOPIC DIAGNOSIS Bone and soft tissue, right knee, total knee replacement/resection: Soft tissue fragments showing focal synovial hyperplasia, fibrosis, and degenerative changes. Bone showing changes consistent with degenerative joint disease. [email or web address].mr 04/24/2024 MICROSCOPIC DESCRIPTION Slides are reviewed. GROSS DESCRIPTION Received is one container designated bone and soft tissue right knee. The specimen consists of multiple fragments of watkins-yellow bone measuring in aggregate 10 x 11 x 3 cm. Also in the specimen container are multiple fragments of yellow-white soft tissue measuring in aggregate 8 x 8 x 2.5 cm. A number of bony fragments contain articular surfaces consistent with tibial plateau and femoral condyle and displaying prominent osteophyte formation, eburnation and bone erosion. Diamond Grinder sections are submitted in two cassettes as follows: 1 - soft tissue, 2 - bone after decalcification. / RAMYA.mr 04/19/2024 TC:5 [facility]: [id number]
[2024-04-18] MEDS: Cefazolin 2 GM in Syringe 10 ML IV (11:20)
[2024-04-18] MEDS: TXA 1000mg in NS100 100ml (IVPB at Incision) 660 MG IV (11:28)
[2024-04-18] MEDS: dexAMETHasone 10 MG/ML Vial IV (11:41)
[2024-04-18] MEDS: TXA 1000mg in NS100 100ml (IVPB at Closure) 660 MG IV (11:58)
[2024-04-18] MEDS: Epinephrine (1 mg/ml) 1 MG/ML VIAL (12:02)
[2024-04-18] MEDS: Bupivacaine 0.5% PF 10 ML VIAL (12:02)
[2024-04-18] MEDS: 0.9% Normal Saline (Pres. free 10 ML Vial (12:02)
[2024-04-18] MEDS: dexAMETHasone 4 MG/ML Vial (12:02)
--- NOTE | 2024-04-18 13:43 | PCM.POST.ANE ---
Anesthesia: Postop Eval I Current Vital Signs Temperature: 97.3 F Pulse Rate: 73 Blood Pressure: 170/92 Respiratory Rate: 18 Pulse Ox: 98 Assessment Airway patent: Yes Spontaneous unlabored respirations: Yes nausea: No Vomiting: No Anesthesia Complication: No Fluid Hydration Crystalloid volume administer (ml): 1,000 Total IV fluid infused: 1,000 Progress Note Anesthesia document: Postop Eval 1 completed: Yes
--- NOTE | 2024-04-18 13:49 | PCM.OPRPT ---
Operative Report (Standard) Operative Information Date of Procedure: 04/18/24 Pre-Operative Diagnosis: Right knee DJD Post-Operative Diagnosis: Same Surgery/Procedure Performed: Right total knee arthroplasty sales recruiting coordinator: Yes Business Account Executive: Jsaper Snell Tasks completed by museum assistant: Opening & closing Additional respiratory care assistant?: No Type of Anesthesia: Spinal RN Documented Start/Stop Times: Operation Date: 04/18/24 10:45 Case Time Into Pre-Op 04/18/24 08:51 Out of Pre-Op 04/18/24 10:45 Anesthesia Start 04/18/24 11:20 Into Room 04/18/24 11:20 Procedure Start 04/18/24 11:42 Procedure End 04/18/24 13:31 Anesthesia End 04/18/24 13:39 Out of Room 04/18/24 13:39 Into Recovery 04/18/24 13:43 Procedure Start Time: 11:42 Procedure Stop Time: 13:31 Select all DRAINS/GRAFTS/IMPLANTS that apply: Prosthetic device Prosthetic device details: Gely Estimated Blood Loss: 175 Specimen collected: Yes Description of specimen(s) removed: Bone and soft tissue knee Description of surgery: Preoperative diagnosis: Right knee DJD Postoperative diagnosis: Same Procedure: Right total knee arthroplasty CT guided Robotic Assisted Implant: [place] triathlon press fit, femoral component size 4, tibial baseplate size 5, asymmetric patella size 35, polyethylene X3 size 9 CS Anesthesia: Spinal with adductor canal block Tourniquet time: 12 minutes at 300 mmHg Complications: None Condition: Stable to PACU Estimated blood loss: 175 cc Director Of Epidemiology Jasper Snell. My physician respiratory care assistant was a vital part of this case. He was important in appropriate retraction during the case, and protection of soft tissues during procedure. His intimate knowledge of the case and my steps aided in safe and expedient completion of the procedure as well as appropriate position of the extremity during the case. He was also vital in assisting with closure under my direct supervision. Indication for procedure: This is a 69-year-old male with long standing degenerative joint disease of the knee who has failed conservative treatment and wished to proceed with elective total knee arthroplasty. Risk benefits and alternatives were reviewed including; risk of bleeding, infection, nerve artery and tissue damage, continued pain, postoperative stiffness, venous thromboembolism, need for postoperative rehabilitation, mechanical feel to the knee, and expected postoperative course. The pre- operative CT and templating was performed with component sizing. Procedure: The patient was met in the preoperative holding area. The operative extremity was identified by both patient and physician and was marked. Patient was met by anesthesia. An adductor canal block was placed by anesthesia postoperatively the patient was brought back to the operating room on a wheeled cart and transferred to the operating table in the supine position. Anesthesia was started. A well-padded tourniquet was placed on the operative extremity. The patient was prepped and draped in the usual sterile fashion. A timeout was called to ensure the proper patient procedure and extremity were being contemplated. An esmarch was used to exsanguinate the extremity. The tourniquet was inflated. A 10 blade scalpel was used to make a midline incision down through the skin and subcutaneous tissue. Skin retractors placed. Bovie and Aquamantis were used to perform meticulous hemostasis. full-thickness flaps were elevated medial and lateral along the joint capsule. A deep blade scalpel was used to perform a medial parapatellar arthrotomy. The knee was brought to full extension. A bovie was used to release the soft tissues off the most proximal aspect of the medial tibial plateau, a three-quarter inch curved osteotome was also used in this process. The infrapatellar fat pad was excised. The suprapatellar fat pad was excised partially anteriorolateraly and portion the anterioromedial pad was elevated from the femur. At this point our intra-articular femoral array was placed at a 45 degree angle proximal and posterior to the medial epicondyle. femoral checkpoint was placed at this time. Our tibial array was placed partially intra incisional 1 stab incision was made for the inferior pin with a 15 blade scaple, and pins were placed and attached to the tibial array , tibial checkpoint was placed in the proximal tibial metaphysis. Tourniquet was let down. At this point registration wiggins were taken throughout the knee . Once the knee was registered we then tensioned the medial and lateral ligaments in extension and 90 degrees of flexion. We then used these numbers to adjust our components within parameters to balance the knee in both flexion and extension once this was done on our monitor we then proceeded with using the robotic arm to make our tibial plateau cut, anterior and posterior chamfer and distal femur cuts. we removed the cut fragments with the use of a bovie and Leslie, we did use a lamina race car driver to insure we visualized and removed all posterior osteophytes and at this time also used the Aquamantis on the posterior joint capsule. we then trialed and achieved the desired plan with a well-balanced knee. we used the green probe to robb the corresponding tibial rotation based on our CT template. Lug holes were drilled in the femur the tibia preparation was completed with the appropriate sized base plate pinned based on previous rotation robb. An appropriate sized fin punch was used on the tibia and 4 corner drill was used for the press fit component and the patella was prepared by first using a caliper to ensure sufficient bone stock and a patellar reamer to remove the desired amount of bone. lug holes drilled for an asymmetric poly. We then brought the knee through range of motion with excellent patellar tracking. We thoroughly irrigated the knee. Trial components were removed a posterior capsular injection was preformed with our standard cocktail. In addition the aqua Mantis was also used to aid in hemostasis. Betadine rinse was allowed to sit and washed out completely. Components were press-fit into place. Aricept rinse was then used followed by several more liters of irrigation after it was allowed to sit. The joint capsule was closed with #1 Ethibond [id number]'s in the upper part of the arthrotomy and #1 Vicryl in the lower part of the arthrotomy. , Followed by 2-0 Vicryl in the subcutaneous tissues with prasanna in the skin. Arrays and checkpoints were removed prior to closure all counts were correct stab incisions were closed with a staple standard dressing in the form of Mepilex AG for the main incision and a small Mepilex over the pin holes. Thigh-high MICHELLE hose applied over top of dressing. Patient tolerated the procedure well and was directed to PACU in stable condition . There were no intraoperative complications. Surgical Findings: Degenerative joint disease Complications Complications: No
--- NOTE | 2024-04-18 13:51 | POSTOPAN2_ITS ---
Anesthesia Postop Eval I Sum Postop Eval Completion status Anesthesia document: Postop Eval 1 completed: Yes Anesthesia Postop Eval I Summary Anesthesia Postop Eval I Summary: Anesthesia Postop Eval I: Assessment Summary Airway patent Yes 04/18/24 13:43 [email or web address] Spontaneous unlabored Yes 04/18/24 13:43 WHIZZER OPERATOR.CSIR respirations Mental status nausea No 04/18/24 13:43 [email or web address] OPERATOR.CSIR Vomiting No 04/18/24 13:43 WHIZZER OPERATOR.CSIR Anesthesia Postop Eval I: Fluid Summary Crystalloid volume administer 1,000 04/18/24 13:43 WHIZZER [email or web address].CSIR (ml) Colloids volume administered ( ml) Blood Product volume administered (ml) Total IV fluid infused 1,000 04/18/24 13:43 WHIZZER OPERATOR.CSIR Anesthesia Postop Eval I: Summary Notes Anesthesia Complication No 04/18/24 13:43 WHIZZER OPERATOR.CSIR Anesthesia Complication Comment: Post-operative progress note Anesthesia: Postop Eval II Evaluation Mental status: Awake Pain Level: 2 nausea: No Vomiting: No
--- NOTE | 2024-04-18 13:51 | EX.PCM.DISCH ---
Discharge Instructions Diet Discharge Diet: 2200 Calorie Control Diet (Limit sugars and carbohydrates as perioperative hyperglycemia can increase risk of infection) Activity Weight Bearing Status: Full weight bearing Dressing / Incision Call your doctor if you observe: Shortness of breath and Chest pain Additional Dressing/Incision Instructions:: Ice and elevate lower extremities 2 weeks while not ambulating. Ambulation is encouraged. Weight bearing as tolerated. Use assistive devise for stability. Encourage FULL knee extension and flexion 1 time EVERY time you get up and down and MULTIPLE times per day. No showering until 72 hours after surgery. May begin showering postop day #3. Remove the dressing prior to shower and gently wash with warm water and antibacterial soap then pat dry and place abdominal pad (or plain gauze) and MICHELLE hose over top. This is to be done daily. Do not submerge for 3 weeks. If not showering daily after the initial 72 hours then you must clean incision and change dressing daily after the dressing comes off, must come off by 7 days postop. Do not allow animals near the incision area. Keep clean. Follow anti-coagulation recommendations as prescribed. Do not take any NSAIDs while on blood thinner. Do not take any additional narcotic pain medication other than what was prescribed on your surgery day without discussing with physician. Narcotic medication can be addictive. Do not drink alcohol while taking narcotics. Supplement narcotic prescription with acetaminophen 1000 mg 4 times a day. Start physical therapy. If you are not currently scheduled for physical therapy or you are unsure of appointment time please call office [facility] to arrange. Call Dr. Nguyen with any concerns. Follow Up Care Please Follow Up With: Wilberto Nguyen DO When: 2 weeks Test Results: Test results from this visit will be discussed in further detail at your follow-up appointment, if applicable. Discharge Plan Admission Primary Reason for Your Visit: Right total knee arthroplasty Attending Provider: Wilberto Nguyen Primary Care Provider: Eugenio Painting Instructions Print Language: Citizen Of [place] Discharge Orders/Prescriptions Prescriptions: New acetaminophen 500 mg tablet 1,000 mg PO Q6H Qty: 90 2RF cephalexin 500 mg capsule 1,000 mg PO Q8H Qty: 4 0RF Rx Instructions: Take 2 tabs before you go to bed and 2 tabs after 5 AM morning after surgery when you wake up oxycodone 5 mg tablet 5 - 10 mg PO Q6H PRN (Reason: pain) 7 Days Qty: 60 0RF Eliquis 2.5 mg tablet 2.5 mg PO BID Qty: 30 0RF Rx Instructions: Begin morning after surgery. Continued multivitamin Tablet 1 tab PO DAILY tadalafil 5 mg tablet 5 mg PO DAILY ramipril 2.5 mg capsule 10 mg PO QHS donepezil 10 mg tablet 10 mg PO QHS budesonide-formoterol [Symbicort] 80-4.5 mcg/actuation HFA aerosol inhaler 2 inh inhalation BID albuterol 90 mcg/actuation aerosol 90 mcg inhalation Q4H PRN PRN (Reason: SOB/WHEEZING) ipratropium-albuterol 0.5 mg-3 mg(2.5 mg base)/3 mL solution for nebulization 3 ml inhalation BID PRN PRN (Reason: wheezing) Patient Comments: [NO ORIGINAL SIG] Rx Instructions: DAILY AT THIS POINT FOR VIRAL RESP INFECTION Held aspirin 81 MG tablet 1 tab PO DAILY Hold Instructions: Resume on 04/21/24. Patient Comments: LAST DOSE 03/23/24 omega 0-jsy-dbn-fish oil [Fish Oil] 1,200 (144-216) mg capsule 1 cap PO DAILY Hold Instructions: May resume after completion of blood thinner Discontinued acetaminophen [Tylenol Extra Strength] 500 mg tablet 500 mg PO Q6H PRN (Reason: pain) etodolac 500 mg tablet 500 mg PO BID PRN (Reason: pain) Qty: 50 0RF Patient Comments: LAST DOSE 03/23/24 Rx Instructions: Do not take in conjunction with other NSAID. Tylenol is okay. Referrals / Follow Up: Eugenio Painting MD [Primary Care Provider] - Disposition Disposition (needs filled in before D/C Order can be placed): Home, Self Care
--- NOTE | 2024-04-18 13:51 | PCM.POSTANE2 ---
Anesthesia Postop Eval I Sum Postop Eval Completion status Anesthesia document: Postop Eval 1 completed: Yes Anesthesia Postop Eval I Summary Anesthesia Postop Eval I Summary: Anesthesia Postop Eval I: Assessment Summary Airway patent Yes 04/18/24 13:43 HEAVY MOBILE EQUIPMENT OPERATOR.CSIR Spontaneous unlabored Yes 04/18/24 13:43 HEAVY MOBILE EQUIPMENT OPERATOR.CSIR respirations Mental status nausea No 04/18/24 13:43 HEAVY MOBILE EQUIPMENT OPERATOR.CSIR Vomiting No 04/18/24 13:43 HEAVY MOBILE EQUIPMENT OPERATOR.CSIR Anesthesia Postop Eval I: Fluid Summary Crystalloid volume administer 1,000 04/18/24 13:43 HEAVY MOBILE EQUIPMENT OPERATOR.CSIR (ml) Colloids volume administered ( ml) Blood Product volume administered (ml) Total IV fluid infused 1,000 04/18/24 13:43 HEAVY MOBILE EQUIPMENT OPERATOR.CSIR Anesthesia Postop Eval I: Summary Notes Anesthesia Complication No 04/18/24 13:43 HEAVY MOBILE EQUIPMENT OPERATOR.CSIR Anesthesia Complication Comment: Post-operative progress note Anesthesia: Postop Eval II Evaluation Mental status: Awake Pain Level: 2 nausea: No Vomiting: No
[2024-04-18] MEDS: Lactated Ringers 1,000 ML 125 ML IV (14:02)
--- NOTE | 2024-04-18 14:02 | RAD_ITS ---
INDICATION: post op -- in PACU EXAMINATION/TECHNIQUE: X-RAY - RIGHT XR Knee 2 Views COMPARISON: FINDINGS: Status post total right knee replacement. The hardware components are well postsurgical changes in the adjacent subcutaneous tissue. Skin prasanna are present anteriorly.. RAD/Knee 1 or 2 Views IMPRESSION: Total knee replacement with post surgical changes. Electronically Signed: Rl Arrington DO at 17:02 EST Reading Location ID and State: [facility] / [place] Tel [phone], Service support ,
[2024-04-18] MEDS: oxyCODONE 5 MG Tablet PO (15:18)
[2024-04-18] MEDS: Cefazolin 2 GM in Syringe IV (15:43)
== END 2024-04-18 19:00 | disposition home or self-care (01) ==
LOC: SDC 08:46 → AC 08:48
PROVIDERS: Anesthesiology; PCP Family Medicine; Referring Provider Orthopaedic Surgery; Visit Provider Orthopaedic Surgery
PROC: 0SRC0JZ Replacement of Right Knee Joint with Synthetic Substitute, Open Approach (ICD-10-PCS; CPT 27447; principal; 2024-04-18 10:15)
DX: M17.11 Unilateral primary osteoarthritis, right knee (principal); J43.9 Emphysema, unspecified; Z79.4 Long term (current) use of insulin; E11.9 Type 2 diabetes mellitus without complications; G89.29 Other chronic pain; I10 Essential (primary) hypertension; Z79.01 Long term (current) use of anticoagulants; Z79.51 Long term (current) use of inhaled steroids; Z79.82 Long term (current) use of aspirin; Z79.899 Other long term (current) drug therapy; Z87.891 Personal history of nicotine dependence
CPT/HCPCS: 27447; 64447; 01402

== ENCOUNTER 2024-07-10 10:30 | Outpatient (RCR) | payer MEDICARE, SELFPAY ==
--- NOTE | 2024-04-22 18:19 | HP.PTEVAL ---
Patient's Visit Information Visit Information Visit Information: LORENA MEDEIROS is a 69 year old M referred to Physical Therapy by Dr. Wilberto Nguyen DO with a diagnosis of R TKA, DOS: 04/18/24. Date of Evaluation: 04/22/24 Physical Therapist: Cayden Scherer DPT Visit Plan Frequency: 2-3x /Week Duration: 8 weeks Plan: 1) R knee ROM progress end ranges. 2) edema management with ice and vaso. 3) quad activation, progressing to functional strengthening 4) gait mechanics progressing to no AD as tolerate.d Subjective Subjective: Pt. is here today for his initial evaluation with diagnosis of R TKA, DOS: 04/18/24. Pt. reports doing okay today. He arrives with spouse with use of FWW. Pt. reports having a lot of pain over the weekend, but has been doing well since. Pt. is taking his medication as prescribed. Pt. reports no N/T. He has bruising in on his knee and posterior/medial thigh. Pt. reports being HEP compliant, but unable to complete SLR at this point in time. He has been stretching. He is sleeping well, but still waking up at night. 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 Pt. removed bandage and is doing well. No calf pain. Pt. is hopeful to get back to all prior levels of function. Pain R knee: Pain Intensity (Out of 10): 5 Pain Intensity Range: 3 and 8 Objective Objective: POSTURE: Pt. has increased lateral wt. shift to L side in stance, lacks TKE on RLE in stance. PALPATION: negative homans, Pt. has marked bruising around R knee and posterior thigh and calf. Marked edema throughout. NEURO: Pt. has normal DTR of B achilles, normal sensation throughout RLE. ROM: PROM: 0-5-95deg. tightness in B HS, MMT: Pt. has marked quad atrophy. difficulty with quad set. MMT: RLE: ankle 5/5 throughout; knee: ext 1#, flexion 8#; hip: flexion 0#, abd 5#, ext 5#. LLE: ankle 5/5 throughout; knee; Ext 45.5$, flexion 31.9#; hip: flexion 23.9#, abd 19.9#, ext 35.8#. 30sec sit to stand rep test: 7 with use of UEs. TUG 20.9sec with use of FWW Balance/Special Test Scores WOMAC Total Score: 66 WOMAC Percentatge: 31.2500 Goals Goal 1:: LTG: Pt. to be I with HEP> Goal Time Frame: 4-6 Weeks Goal 2:: LTG: Pt. to have increased R knee ROM to 0-0-120deg. Goal Time Frame: 4-6 Weeks Goal 3:: STG: Pt. to sleep throughout the night without increase in R knee pain. Goal Time Frame: 2-4 Weeks Goal 4:: STG: Pt. to have symmetrical edema in BLEs. Goal Time Frame: 2-4 Weeks Goal 5:: LTG: Pt. to complete TUG without AD with time less than 10seconds. Goal Time Frame: 4-6 Weeks Goal 6:: LTG: Pt. to have symmetrical BLE strength. Goal Time Frame: 4-6 Weeks Rehabilitation Potential Physical Therapy Diagnosis: Pt. has signs and symptoms consistent with R TKA, DOS: 04/18/24. Pt. has marked hypomobility, weakness, difficulty with walking and increased pain. He would benefit from PT to address the above limitations progressing back to all previous activities without limitations. Rehabilitation Potential: Excellent Anticipated Interventions Patient/Client Instruction: Educate patient on: Condition, Plan of Care, Risk Factors and Benefits of Fitness Program For the Purpose of:: To improve decision making, To facilitate caregiver knowledge, To improve self management, To prevent re-injury and To improve ability to perform tasks related to life management Therapeutic Exercise to Include: Strength training, Power training, Endurance training, Postural training, Flexibilty training, Gait and locomotor training, Passive ROM and Active ROM For the Purpose of:: To decrease pain, To decrease swelling/inflammation, To increase ROM, To improve nutrient delivery to tissue, To increase oxygenation perfusion, To improve muscle performance and motor function, To improve ability to perform ADL's, To improve ability of physical actions for home/community/work/leisure, To improve gait and locomotor functions, To improve health of tissue, To decrease soft tissue restriction, To increase flexibility/ROM and To improve endurance Cryotherapy (ice pack, ice massage): Yes For the Purpose of:: To decrease pain, To decrease swelling/inflammation, To increase ROM, To improve nutrient delivery to tissue and To increase oxygenation perfusion Text: Thank you for the opportunity to evaluate your patient. For Medicare and Medicare HMO plans, please review the plan of care and approve it. It will need to be FAXED BACK to us at [phone] for Medicare purposes. For Medicare only, by signing this I certify the plan of care. Please let me know if there are questions or concerns regarding this plan of care. Physician Signature: Date:
--- NOTE | 2024-06-14 10:54 | HP.PTREVAL_ITS ---
Re-Evaluation Intro: Dr. Wilberto Nguyen, DO, It has been my pleasure to treat LORENA MEDEIROS over the last 23 visits for R TKA, DOS: 04/18/24. Please see the progress note below for an update on the physical therapy plan of care! Subjective Subjective: Pt. reports overall doing well. 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 He does still feel weak in his R leg as well. Pt. reports being 80% better overall. He reports wanting to be stronger still. Objective Objective/Function: ROM: AROM: 0-2-110deg. PROM 0-0-118deg. MMT: RLE: hip: flexion 38.4#, abd 37#; knee: ext 24.4#, flex 28.4# LLE: hip: flex: 60.0#, abd 51.6#; knee: ext 71.6#, flex 67.9# GAIT: Pt. ambulates well without AD. Slight antalgic pattern at times, but not severe. STAIRS: Pt. is able to negotiate with reciprocal pattern with out use of HR. He does have some slight functional weakness with controlled descending and less so with R stance phase during ascending. TU.77sec no AD 6 MWT: 30 sec sit to stand 17 reps without use of UEs. Plan Plan Plan: I am asking for more visits. Focus on strengthening and end range of motion. Add in stair negotiation practice as well. Balance/Gait/Functional tests Balance/Special Test Scores Lower Extremity Functional Score: 35 TUG Test Time Seconds: 6.77 Tug Test: <10 sec.=free mobile 30 Second Chair Rise Test Seconds: 17 6 Minute Walk Test: 1657, no AD Normal is 1680- 2100feet for his age group WOMAC Total Score: 66 WOMAC Percentage: 31.2500 Goals Goals Goal 1:: LTG: Pt. to be I with HEP. Goal Time Frame: 4-6 Weeks Goal Progress: Progressing Goal 2:: LTG: Pt. to have increased R knee ROM to 0-0-120deg. Goal Time Frame: 4-6 Weeks Goal Progress: Progressing Goal 3:: STG: Pt. to sleep throughout the night without increase in R knee pain. Goal Time Frame: 2-4 Weeks Goal Progress: Goal Met Goal 4:: LTG: NEW GOAL: Pt. to ascend and descend steps with 1 HR with our signs of functional weakness. Goal Time Frame: 2-4 Weeks Goal Progress: Progressing Goal 5:: LTG: Pt. to complete TUG without AD with time less than 10seconds. Goal Time Frame: 4-6 Weeks Goal Progress: Goal Met Goal 6:: LTG: Pt. to have symmetrical BLE strength. Goal Time Frame: 4-6 Weeks Goal Progress: Progressing Anticipated Interventions Anticipated Interventions Patient/Client Instruction: Educate patient on: Condition, Plan of Care, Risk Factors and Benefits of Fitness Program For the Purpose of:: To improve decision making, To facilitate caregiver knowledge, To improve self management, To prevent re-injury and To improve ability to perform tasks related to life management Therapeutic Exercise to Include: Strength training, Power training, Endurance training, Postural training, Flexibilty training, Gait and locomotor training, Passive ROM and Active ROM For the Purpose of:: To decrease pain, To decrease swelling/inflammation, To i ncrease ROM, To improve nutrient delivery to tissue, To increase oxygenation perfusion, To improve muscle performance and motor function, To improve ability to perform ADL's, To improve ability of physical actions for home/community/work/leisure, To improve gait and locomotor functions, To improve health of tissue, To decrease soft tissue restriction, To increase flexibility/ROM and To improve endurance Cryotherapy (ice pack, ice massage): Yes For the Purpose of:: To decrease pain, To decrease swelling/inflammation, To increase ROM, To improve nutrient delivery to tissue and To increase oxygenation perfusion Re-Evaluation Ending Re-evaluation ending: Please do not hesitate to contact me at [phone] by phone or if you have questions or concerns regarding this new plan of care! Sincerely, Cayden Scherer DPT
--- NOTE | 2024-07-01 11:16 | HP.PTREVAL ---
Re-Evaluation Intro: Dr. Wilberto Nguyen, DO, It has been my pleasure to treat LORENA MEDEIROS over the last 30 visits for R TKA, DOS: 04/18/24. Please see the progress note below for an update on the physical therapy plan of care! Subjective Subjective: Pt. reports no pain currently. but did break up a dog fight on Monday and his knee was pretty sore after wards. Pt. reports being 86 Objective Objective/Function: ROM: R knee:L PROM 0-0-121deg. AROM: 0-1-115deg. MMT: R knee: ext; 47.4# mild increase NW, flexion 49.0# L knee: ext 65.5#, flex 51.2# GAIT: normal without AD STAIRS: normal no handrailing with reciprocal pattern. Pt is overall doing great. I want him to have an established program to continue to progressive strengthening. Plan Plan Plan: Pt. to be seen for 20-3 more visits to establish his gym program and be I with it. Pt. will be DC from PT at that point in time. Balance/Gait/Functional tests Balance/Special Test Scores Lower Extremity Functional Score: 72 TUG Test Time Seconds: 5.3 Tug Test: <10 sec.=free mobile 30 Second Chair Rise Test Seconds: 21 6 Minute Walk Test: 1781 feet no AD WOMAC Total Score: 66 WOMAC Percentage: 31.2500 Goals Goals Goal 1:: LTG: Pt. to be I with HEP. Goal Time Frame: 4-6 Weeks Goal Progress: Progressing Goal 2:: LTG: Pt. to have increased R knee ROM to 0-0-120deg. Goal Time Frame: 4-6 Weeks Goal Progress: Goal Met Goal 3:: STG: Pt. to sleep throughout the night without increase in R knee pain. Goal Time Frame: 2-4 Weeks Goal Progress: Goal Met Goal 4:: LTG: NEW GOAL: Pt. to ascend and descend steps with 1 HR with our signs of functional weakness. Goal Time Frame: 2-4 Weeks Goal Progress: Goal Met Goal 5:: LTG: Pt. to complete TUG without AD with time less than 10seconds. Goal Time Frame: 4-6 Weeks Goal Progress: Goal Met Goal 6:: LTG: Pt. to have symmetrical BLE strength. Goal Time Frame: 4-6 Weeks Goal Progress: Progressing Anticipated Interventions Anticipated Interventions Patient/Client Instruction: Educate patient on: Condition, Plan of Care, Risk Factors and Benefits of Fitness Program For the Purpose of:: To improve decision making, To facilitate caregiver knowledge, To improve self management, To prevent re-injury and To improve ability to perform tasks related to life management Therapeutic Exercise to Include: Strength training, Power training, Endurance training, Postural training, Flexibilty training, Gait and locomotor training, Passive ROM and Active ROM For the Purpose of:: To decrease pain, To decrease swelling/inflammation, To increase ROM, To improve nutrient delivery to tissue, To increase oxygenation perfusion, To improve muscle performance and motor function, To improve ability to perform ADL's, To improve ability of physical actions for home/community/work/leisure, To improve gait and locomotor functions, To improve health of tissue, To decrease soft tissue restriction, To increase flexibility/ROM and To improve endurance Cryotherapy (ice pack, ice massage): Yes For the Purpose of:: To decrease pain, To decrease swelling/inflammation, To increase ROM, To improve nutrient delivery to tissue and To increase oxygenation perfusion Re-Evaluation Ending Re-evaluation ending: Please do not hesitate to contact me at [phone] by phone or if you have questions or concerns regarding this new plan of care! Sincerely, Cayden Scherer DPT
== END 2024-07-10 19:00 | disposition home or self-care (01) ==
LOC: PT 10:30
PROVIDERS: PCP Family Medicine; Referring Provider Orthopaedic Surgery; Visit Provider Orthopaedic Surgery
DX: M17.11 Unilateral primary osteoarthritis, right knee (principal); Z96.651 Presence of right artificial knee joint
CPT/HCPCS: 97016; 97110; 97140; 97161; 97530

== ENCOUNTER → 2024-08-07 | Outpatient (CLI) | payer MEDICARE, SELFPAY ==
[2024-08-07 06:42] LABS: Absolute Lymphocyte Count 1.84 X10^3/uL (0.83-4.51); Absolute Neutrophil Count 2.1 X10^3/uL (2.0-7.7); Basophil# 0.05 X10^3/uL; Eosinophil# 0.35 X10^3/uL; Eosinophils% 7.2 % (0-5); Hematocrit 44.8 % (40-54); Hemoglobin 15.1 g/dL (13.0-16.5); Lymphocyte # 1.84 X10^3/ul (0.83-4.51); Lymphocyte % 37.6 % (19-41); Mean Corp Hgb Conc 33.7 g/dL (32-36); Mean Corpuscular Hgb 30.5 pg (27.0-32.0); Mean Corpuscular Volume 90.5 fL (80-94); Mean Platelet Vol. 8.8 fl (6.2-12.0); Monocyte# 0.55 X10^3/uL; Monocyte% 11.2 % (0-10); NRBC Flagged by Analyzer 0 % (0-5); Neutrophil # 2.08 X10^3/uL (2.7-7.7); Neutrophil % 42.6 % (47-70); Platelet Count 308 K/mm3 (150-450); RBC Distribution Width CV 14.6 % (11.6-14.6); RBC Distribution Width SD 48.1 fl (35.1-43.9); Red Blood Count 4.95 M/mm3 (4.6-6.2); White Blood Count 4.9 K/mm3 (4.4-11.0)
[2024-08-07 06:43] LABS: Erythrocyte Sedimentation Rate 13 mm/hr (0-20)
[2024-08-07 07:17] LABS: CRP < 3.00 mg/L (0.0-3.0); Uric Acid 5.8 mg/dL (3.5-7.2)
== END | disposition home or self-care (01) ==
LOC: LAB 05:58
PROVIDERS: PCP Family Medicine; Referring Provider Orthopaedic Surgery; Visit Provider Orthopaedic Surgery
DX: M10.9 Gout, unspecified (principal)
CPT/HCPCS: 36415; 84550; 85025; 85652; 86140

== ENCOUNTER → 2024-09-03 | Outpatient (CLI) | payer MEDICARE, SELFPAY ==
[2024-09-03 17:46] LABS: White Blood Count 5.7 K/mm3 (4.4-11.0)
[2024-09-03 17:47] LABS: Hematocrit 43.9 % (40-54); Mean Corp Hgb Conc 34.2 g/dL (32-36); Mean Corpuscular Hgb 31.3 pg (27.0-32.0); Mean Corpuscular Volume 91.6 fL (80-94); Mean Platelet Vol. 9.5 fl (6.2-12.0); Platelet Count 317 K/mm3 (150-450); RBC Distribution Width CV 14.5 % (11.6-14.6); RBC Distribution Width SD 48.9 fl (35.1-43.9); Red Blood Count 4.79 M/mm3 (4.6-6.2)
[2024-09-03 17:52] LABS: Cholesterol 257 mg/dL (<=200); High Density Lipoprotein 62 mg/dL; Low Density Lipoprotein Calc. 135 mg/dL; Triglycerides 299 mg/dL; Very Low Density Lipoprotein 60 mg/dL (5-40); cholesterol:hdl ratio screen 4.16
[2024-09-03 17:59] LABS: Hemoglobin A1c 6.1 % (<=5.6)
[2024-09-03 18:57] LABS: ALB/GLOB Ratio 1.2 RATIO (0.9-2.4); AST(SGOT) 38 U/L (<=37); Alanine Aminotransfer ALT/SGPT 34 U/L (<=46); Alkaline Phosphatase 108 U/L (40-129); Anion Gap 12 (5-15); BUN 19 mg/dL (4-19); BUN/Creat Ratio 16.6 RATIO (10-20); Calcium,Total 9.5 mg/dL (7.6-11.0); Carbon Dioxide 25.2 mmol/L (21.0-32.0); Chloride 102 mmol/L (98-108); Creatinine, Serum 1.13 mg/dL (0.70-1.20); EST Glomerular Filtration Rate 71 (>60); Globulin 3.4 g/dL (2.2-4.2); Glucose 98 mg/dL (70-99); Potassium 3.9 mmol/L (3.3-5.1); Protein, Total 7.5 g/dL (5.9-8.4); Sodium Level 139 mmol/L (133-145); Total Bilirubin 0.49 mg/dL (0.00-1.30)
== END | disposition home or self-care (01) ==
LOC: MFPLAB 14:51
PROVIDERS: PCP Family Medicine; Referring Provider Family Medicine; Visit Provider Family Medicine
DX: I10 Essential (primary) hypertension (principal)
CPT/HCPCS: 36415; 80053; 80061; 83036; 85027

== ENCOUNTER → 2024-12-30 | Outpatient (CLI) | payer MEDICARE, SELFPAY ==
[2024-12-30 20:03] LABS: Creatinine, Urine (random) 200.00 mg/dL (39.00-259.00); Microalbumin,Random Urine 14.9 mg/L (<20 mg/L)
== END | disposition home or self-care (01) ==
LOC: MFPLAB 14:45 → LABSPEC 14:45
PROVIDERS: PCP Family Medicine; Visit Provider Family Medicine
DX: I10 Essential (primary) hypertension (principal)
CPT/HCPCS: 82043; 82570

== ENCOUNTER → 2025-03-24 | Outpatient (CLI) | payer MEDICARE, SELFPAY ==
--- NOTE | 2025-03-24 08:20 | CT_ITS ---
PROCEDURE: LOW DOSE CT LUNG SCREENING 03/24/2025 REASON FOR EXAM: CURRENT TOBACCO USE TECHNIQUE: Procedure Code: [id number] Modality: CT Procedure: LOW DOSE CT LUNG SCREENING Coronal and Sagittal reconstruction series were provided. One or more dose reduction techniques were used (e.g., Automated exposure control, adjustment of the mA and/or kV according to patient size, use of iterative reconstruction technique). REFERENCE LINK: [employer] [employer] Lung-RADS RADIATION DOSE SUMMARY: DLP: 144.46 mGycm COMPARISON: Low-dose CT lung screening 03/2024 FINDINGS: PULMONARY NODULES: (Only nodules >3mm are reported) Nodules described below are on series 2 unless otherwise specified. Pulmonary Nodules: 3 mm subpleural left upper lobe pulmonary nodule, stable (image 54). Hardware:None. Lymph Nodes:No lymphadenopathy. Heart and Vasculature:The heart is normal in size.The main pulmonary artery and thoracic aorta are normal caliber. Scattered atherosclerotic calcification of the thoracic aorta. Coronary Artery Calcifications: Present Lungs and Airways: Mild dependent atelectasis. The central airways are patent. Pleura:No pneumothorax or pleural effusion. Upper Abdomen:Unremarkable. Bones:No aggressive osseous lesions. Degenerative changes of the thoracic spine. Chronic right rib fractures. CT/Low Dose CT Lung Screening IMPRESSION: 3 mm subpleural left upper pulmonary nodule. Coronary artery calcification (CAC) is present Lung-RADS Category: 2 BENIGN (BASED ON IMAGING FEATURES OR INDOLENT BEHAVIOR). RECOMMEND 12-MONTH SCREENING LDCT. Reading Location: [id number]
== END | disposition home or self-care (01) ==
LOC: CT 08:01
PROVIDERS: PCP Family Medicine; Referring Provider Family Medicine; Visit Provider Family Medicine
DX: F17.210 Nicotine dependence, cigarettes, uncomplicated (principal)
CPT/HCPCS: 71271